=== PATIENT | female | born 1940 | race Caucasian/White ===

== ENCOUNTER → 2017-07-15 21:56 | Emergency (ER) | payer MEDICARE ==
[~2017-07-15 21:56] MED LIST: HYDROcodone/ACETAMIN 5-325 MG* 1 TAB PO ONE
[2017-07-16 01:44] VITALS: BP 148/72
--- NOTE | 2017-07-16 07:45 | RAD ---
HISTORY: Fall, left hip pain COMPARISONS: August 27, 2013 VIEWS: 3, Frontal view of the pelvis with frontal and frog-leg views of the left hip FINDINGS: BONE DENSITY: Normal. BONES: The patient is status post left hip arthroplasty. There is no hardware failure or osteolysis. JOINTS: The patient is status post left hip arthroplasty. 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 ALIGNMENT: There is no dislocation. SOFT TISSUES: Unremarkable. OTHER FINDINGS: Degenerative changes are noted of the spine IMPRESSION: STATUS POST LEFT HIP ARTHROPLASTY. NO ACUTE OSSEOUS INJURY. IF SYMPTOMS PERSIST, RECOMMEND REPEAT IMAGING.
--- NOTE | 2017-07-16 07:46 | RAD ---
INDICATION: Fall. Right shoulder injury COMPARISON: None TECHNIQUE: Routine frontal, Y and axial views were obtained. FINDINGS: There is a mildly displaced fracture of the head and surgical neck of the humerus. No other fractures are evident. There is osteopenia with underlying AC joint osteoarthritis. No additional findings. IMPRESSION: PROXIMAL HUMERAL FRACTURE DESCRIBED.
--- NOTE | 2017-07-16 07:48 | RAD ---
INDICATION: Right elbow pain COMPARISON: None TECHNIQUE: AP, lateral, and oblique views were obtained. FINDINGS: There is no acute fracture. There are minor irregularities about the lateral upper condyle perhaps related to epicondylitis. There is mild traction spurring from the olecranon. The elbow articulates normally. There is no joint effusion IMPRESSION: NO ACUTE ABNORMALITIES ABOUT THE ELBOW.
--- NOTE | 2017-07-16 07:49 | RAD ---
INDICATION: Traumatic fracture proximal right humerus. Clavicular pain. COMPARISON: Right shoulder same date TECHNIQUE: AP views were obtained. FINDINGS: There is no clavicular fracture. There is a known proximal humeral fracture described in a separate report. IMPRESSION: NO ACUTE CLAVICULAR FRACTURE.
--- NOTE | 2017-07-16 07:53 | ED ---
Alex Rothman Rebecca, scribed for Romain Adkins MD on 07/15/17 at 2313 . Upper Extremity Pain - HPI Summary HPI Summary: Pt is a 77 y/o F BIBA who presents to ED c/o R shoulder and L hip pain s/p fall. Reports that she lives in independent living and tonight, she became tangled in her blankets causing her to fall at approximately 2130. Negative LOC with no head trauma. Associated pain is currently severe, ranked 10/10. Denies any other injuries or pain. Denies CP, SOB and syncope. She is R-hand dominant. - History of Current Complaint Chief Complaint: EDExtremityUpper Stated Complaint: RT SHOULDER PAIN Time Seen by Provider: 07/15/17 23:05 Hx Obtained From: Patient Mechanism Of Injury: Fall From Height Of: - Bed Onset/Duration: Started Hours Ago, Still Present Severity Currently: Severe Pain Location: Shoulder - Right Associated Signs & Symptoms: Positive: Other - L hip pain. Negative: Chest Pain , SOB Related History: Dominant Hand Right - Allergies/Home Medications Allergies/Adverse Reactions: Allergies Allergy/AdvReac Type Severity Reaction Status Date / Time No Known Allergies Allergy Verified 08/27/13 09:07 PMH/Surg Hx/FS Hx/Imm Hx Endocrine/Hematology History: Reports: Hx Diabetes Cardiovascular History: Reports: Hx Atrial Fibrillation, Hx Hypertension - Surgical History Surgery Procedure, Year, and Place: left hip replacement; Infectious Disease History: Unable to Obtain/Confirm Infectious Disease History: Denies: Traveled Outside the [place] in Last 30 Days - Family History Known Family History: Positive: Diabetes - Social History Alcohol Use: None Substance Use Type: Reports: None Smoking Status (MU): Unknown if Ever Smoked Review of Systems Negative: Chest Pain Negative: Shortness Of Breath Positive: Arthralgia - R shoulder pain, L hip pain Neurological: Other - NEGATIVE: LOC Negative: Syncope All Other Systems Reviewed And Are Negative: Yes Physical Exam - Summary Physical Exam Summary: The patient is well-nourished in no acute distress and in no acute pain. The skin is warm and dry and skin color reflects adequate perfusion. HEENT: The head is normocephalic and atraumatic. The pupils are equal and reactive. The conjunctivae are clear and without drainage. Nares are patent and without drainage. Mouth reveals moist mucous membranes and poor dentition and the throat is without erythema and exudate. The external ears are intact. The ear canals are patent and without drainage. The tympanic membranes are intact. Neck is supple with full range of motion and non-tender. Respiratory: Chest is non-tender. Lungs are clear to auscultation and breath sounds are symmetrical and equal. Cardiovascular: Hear is regular rate and rhythm. There is no murmur or rub auscultated. There is no peripheral edema and pulses are symmetrical and equal. Abdomen: The abdomen is soft and non-tender. There are normal bowel sounds heard in all four quadrants and there is no organomegaly palpated. Musculoskeletal: There is no back pain noted and no reproducible back pain. Positive SUNNY's sign of the LLE. Tenderness and swelling in the R shoulder with decreased ROM. Tender at the distal R clavicle and R elbow. She is neurovascularly intact, distally. There is good capillary refill. She is experiencing no numbness. There is no peripheral edema or calf tenderness elicited. Neurological: Patient is alert and oriented to person, place and time. The patient has symmetrical motor strength in all four extremities. Psychiatric: The patient has an appropriate affect and does not exhibit any anxiety or depression. Triage Information Reviewed: Yes Vital Signs On Initial Exam: Initial Vitals Temp Pulse Resp BP Pulse Ox 97.7 F 63 16 135/63 93 07/15/17 22:09 07/15/17 22:09 07/15/17 22:09 07/15/17 22:09 07/15/17 22:09 Vital Signs Reviewed: Yes - Onel Coma Scale Coma Scale Total: 15 Diagnostics - Vital Signs Vital Signs Temp Pulse Resp BP Pulse Ox 07/15/17 22:09 97.7 F 63 16 135/63 93 - Laboratory Lab Statement: Any lab studies that have been ordered have been reviewed, and results considered in the medical decision making process. - Radiology Elbow XR Xray Interpretation: No Acute Changes Radiology Interpretation Completed By: ED Physician Clavicle XR Xray Interpretation: Positive (See Comments) Radiology Interpretation Completed By: ED Physician Shoulder XR Xray Interpretation: Positive (See Comments) - Humeral neck fracture with impaction. The fracture is comminuted Radiology Interpretation Completed By: ED Physician Hip XR Xray Interpretation: No Acute Changes - S/p hip replacement with no obvious fx or dislocation. Radiology Interpretation Completed By: ED Physician Re-Evaluation - Re-Evaluation First Eval Re-Evaluation Time: 01:08 Change: Improved Comment: Pt is currently pain free. Discussed XR results and plan to splint, D/ C to home and follow up with Dr. Satrk. She understands and agrees. Also discussed having the pt in assisted living instead of independent living which the family agrees with. Course/Dx - Course Assessment/Plan: Pt is a 77 y/o F BIBA who presents to ED c/o R shoulder and L hip pain s/p fall. Reports that she lives in independent living and tonight, she became tangled in her blankets causing her to fall at approximately 2130. Negative LOC with no head trauma. Associated pain is currently severe, ranked 10 /10. Denies any other injuries or pain. Denies CP, SOB and syncope. She is R- hand dominant. Elbow and hip XR are negative for acute fracture. Clavicle and shoulder XR reveal a fracture humerus, with the shoulder XR showing a humeral neck fracture withimpaction that is comminuted. In the ED course, pt was given [place] 5/325 which improved sx. She will be D/C to home with Dx of fractured R humerus and will be placed in a shoulder immobilizer with instructions to ice, Rx for [place] 5/325 and directions to f/u with Dr. Stark in the morning. She and family understand and agree. Elevated BP noted and advised to f/u with PCP. - Diagnoses Differential Diagnosis/HQI/PQRI: Positive: Other - dislocation, left hip contusion, Provider Diagnoses: Closed right humeral fracture Discharge - Discharge Plan Condition: Stable Disposition: HOME Prescriptions: HYDROcodone/ACETAMIN 5-325 MG* [[place] 5-325 TAB*] 1 tab PO Q6H PRN #20 tab MDD 4 PRN Reason: pain Patient Education Materials: Arm Fracture in Adults (ED), RICE Therapy (ED) Referrals: Aniceto Cole MD [Primary Care Provider] - Sharri Stark MD [Medical Doctor] - (Call Dr. Stark's office this morning to follow up. ) Additional Instructions: Apply ice to the fractured arm. The documentation as recorded by the Alex paez Rebecca accurately reflects the service I personally performed and the decisions made by me, Romain Adkins MD.
== END | disposition home or self-care (01) ==
LOC: ED 21:56
DX: S42.201A Unspecified fracture of upper end of right humerus, initial encounter for closed fracture (principal); M25.511 Pain in right shoulder; M25.552 Pain in left hip; W19.XXXA Unspecified fall, initial encounter; Y93.9 Activity, unspecified; Y92.9 Unspecified place or not applicable
CPT/HCPCS: 99283

== ENCOUNTER 2017-07-16 15:58 | Inpatient (IN) | payer MEDICARE ==
[2017-07-16 17:31] LABS: Hematocrit 37 % (35-47); Mean Corpuscular HGB Conc 33 g/dl (31-36); Mean Corpuscular Hemoglobin 29 pg (27-31); Mean Corpuscular Volume 89 fL (80-97); Mean Platelet Volume 9 um3 (7.4-10.4); Red Blood Count 4.16 10^6/ul (4.0-5.4); Red Cell Distribution Width 15 % (10.5-15); White Blood Count 9.1 10^3/ul (3.5-10.8)
[2017-07-16 17:46] LABS: Albumin 3.9 g/dL (3.2-5.2); BUN/Creatinine Ratio 19.8 (8-20); Calcium 8.8 mg/dL (8.6-10.3); EGFR African American 64.3 (>60); Globulin 3.1 g/dL (2-4); Total Bilirubin 0.7 mg/dL (0.2-1.0)
[2017-07-16 18:01] LABS: Urine Nitrite Negative (Negative)
[2017-07-16 18:02] LABS: Urine Bilirubin Negative (Negative); Urine Glucose 1+(50 mg/dL) (Negative)
[2017-07-16 18:54] LABS: Urine Bacteria Absent (Absent)
[2017-07-16] MEDS ORDERED: Ondansetron INJ* 2 MG/ML VIAL IV PRN (19:25)
[2017-07-16] MEDS ORDERED: Dextrose 50% Syringe 50 ML* 25 GM/50 ML SYRINGE IV PUSH PRN (19:25)
[2017-07-16 21:09] LABS: EGFR African American 66.5 (>60); EGFR Non-African American 51.7 (>60)
[2017-07-16 21:44] LABS: Hematocrit 34 % (35-47); Hemoglobin 11.4 g/dl (12.0-16.0); Mean Corpuscular HGB Conc 33 g/dl (31-36); Mean Corpuscular Hemoglobin 30 pg (27-31); Mean Corpuscular Volume 89 fL (80-97); Mean Platelet Volume 9 um3 (7.4-10.4); Red Blood Count 3.88 10^6/ul (4.0-5.4); Red Cell Distribution Width 15 % (10.5-15); White Blood Count 8.5 10^3/ul (3.5-10.8)
[2017-07-16] MEDS: QUEtiapine TAB* 25 MG PO SCH (23:11)
[2017-07-16] MEDS: Metoprolol Tartrate TAB* 25 MG PO SCH (23:11)
[2017-07-16] MEDS: Heparin VIAL(*) 5000 UNITS/ML VIAL (FIVE THOUSAND) SUBCUT SCH (23:11)
--- NOTE | 2017-07-16 23:31 | HP ---
CC: Dr. Aniceto Cole * HISTORY AND PHYSICAL: DATE OF ADMISSION: 07/16/17 PRIMARY CARE PROVIDER: Dr. Aniceto Cole. ATTENDING PHYSICIAN WHILE IN THE HOSPITAL: Alexsandra Valencia MD * (report dictated by Carlos A Miller NP) CHIEF COMPLAINT: 1. Fall. 2. Right shoulder pain. HISTORY OF PRESENTING ILLNESS: Mrs. Bentley is a 77-year-old female patient who carries a history of dementia, AFib, hypertension, and diabetes, who last night apparently sustained a fall. She had gotten up to look out the window according to the son and she got tangled up in her blanket and she had fallen. She has a significant history of dementia where she cannot really remember this as well as the son can. She has delusions and hallucinations and always is hearing things and thinking that the TV is on and she has been living at assisted living. She fell last night unfortunately and was found to have a proximal humerus fracture. She was sent back home, but the family quickly realized that she was unsafe at home with a huge risk of fall again. She was having pain. She could not feed herself. She could not care for herself. She could not even wipe herself. So the son was concerned because of the pain that she was not going to be able to care for herself and she was brought back into the ER today to be evaluated. On evaluating the patient, she denies any chest pain. There is no shortness of breath. She denies having any abdominal pain. She denies having any nausea or vomiting. No recent cough. No fevers or chills , but because of the pain and the fact of her unsafety at home, we were asked to evaluate for admission. PAST MEDICAL HISTORY: Significant for: 1. Hypertension. 2. Diabetes. 3. Dementia. 4. Atrial fibrillation. PAST SURGICAL HISTORY: She has had a left hip hemiarthroplasty from a hip fracture. HOME MEDICATIONS: She does not know what she is taking and the son does not what she is taking. He is going to try to get us an accurate list. All he knows is she is on aspirin, simvastatin, and he does not know the other meds. He thinks there is about 7 in total. So we are going to try to get that list. He says he will call back later tonight. ALLERGIES TO MEDICATIONS: No known drug allergies. FAMILY HISTORY: She is unable to tell me the family history at this point as she does not recall. SOCIAL HISTORY: She does not smoke. She does not drink. Surrogate decision maker is her son. REVIEW OF SYSTEMS: There is no documented fever. She denied having any significant weight change. There was no double vision. There is no ear discharge. Not having any rhinorrhea. No sore throat. No thyroid enlargement. Denied having any chest pain. No orthopnea. No nocturnal dyspnea. There was no abdominal pain. There was no nausea, no vomiting. No dysuria, no frequency. There was no loss of consciousness. No pruritus and no skin ulcerations. Review of 14 systems completed, all others negative. PHYSICAL EXAMINATION GENERAL: At this time, Mrs. Bentley is a 77-year-old female patient. She does not appear to be in any acute distress. She is sitting in the hospital bed. She is awake. She is alert. VITAL SIGNS: Blood pressure 143/67, pulse 74, respirations 18, O2 sat 94%, temperature 98.0. HEENT: Head atraumatic, normocephalic. Eyes: EOMs are intact. Sclerae anicteric. NECK: Supple. Throat: Oral mucosa appears to be moist. No oropharyngeal erythema. HEART: Heart sounds S1 and S2. Regular rate and rhythm. No murmurs, rubs, or gallops. LUNGS: Clear to auscultation. No wheezes, rales, or rhonchi. ABDOMEN: Soft, flat, and nontender. Bowel sounds present. EXTREMITIES: Pulses are 2+ throughout. Distal CSM checks were intact to the right upper extremity. This is in a sling. NEUROLOGIC: She is actually awake and alert. She knows she is in the hospital , knows her name, and she knows it is June. Her speech is clear. Tongue midline. No gross focal deficits. SKIN: Grossly intact. LABORATORY DATA/DIAGNOSTIC STUDIES: WBC of 9.1, RBC of 4.16, hemoglobin 12.0, hematocrit of 37, platelet count of 186. Sodium was 141, potassium 4, chloride of 106, bicarb was 29, BUN was 21, creatinine 1.06. Glucose of 194, calcium 8.8. Total bili 0.78, AST 13, ALT 12, alk phos 72. Albumin 3.9. Urine showed a high specific gravity of 1.035, 1+ protein, 1+ glucose. Imaging from last night revealed she had a hip and pelvis x-ray, which shows status post left hip arthroplasty, no acute osseous injury. Shoulder x-ray showed proximal humeral fracture as described. Clavicle x-ray showed no acute clavicular fracture. Elbow x-ray showed no acute abnormalities of the elbow. EKG from today showed normal sinus rhythm, rate of 56, no ST elevations or T- wave inversions were noted. Old medical records were reviewed. ASSESSMENT AND PLAN: Mrs. Bentley is a 77-year-old female patient coming in to the ER today. She came in last night with complaints of fall. Unfortunately, she was unable to care for herself at home, so she came back to the ER today for further evaluation. She will be admitted under inpatient status for: 1. Right humerus fracture. At this point, she is clearly not safe at home. She is set up to fall again. She has no reliable caregiver except for her son, but he is unfortunately unable to care for her. The patient will be here longer than 2 midnights, she needs a safer place. She is having pain any time she moves the arm, so at this point, we will go ahead and put her on [place]. She will be staying here until we try to get her into a [facility] facility for rehab. I did order a PT and I will order OT needs as well and continue to follow. She is to follow up with Orthopedics. We could certainly consult with them officially to have some ____ here. 2. Diabetes. Continue insulin sliding scale. 3. Hypertension. Blood pressure is stable. We will monitor and try to get the list from her son. 4. Dementia. Continue supportive care. 5. AFib. She does not appear to be in AFib currently. We will again get the list from her son. 6. DVT prophylaxis. She will be placed on heparin subcu. 7. Code status. She wishes to be a full code. 8. Fluids, electrolytes, nutrition. She can have a consistent carb diet. TIME SPENT: Time spent on this admission was approximately 60 minutes, greater than half the time spent face to face with the patient, obtaining my history and physical, the other half time spent going over the plan of care with the patient, implementing plan of care. I discussed the plan of care with my attending, Dr. Valencia, she is in agreement. CARLOS A MILLER, CDL INSTRUCTOR [id number]/[facility] #: [id number] [facility] HOSPITALAisha
[2017-07-17] MEDS: Heparin VIAL(*) 5000 UNITS/ML VIAL (FIVE THOUSAND) SUBCUT SCH ×3 (06:02→21:41)
[2017-07-17 06:15] LABS: Hematocrit 34 % (35-47); Hemoglobin 11.4 g/dl (12.0-16.0); Mean Corpuscular HGB Conc 33 g/dl (31-36); Mean Corpuscular Hemoglobin 30 pg (27-31); Mean Corpuscular Volume 89 fL (80-97); Mean Platelet Volume 9 um3 (7.4-10.4); Red Blood Count 3.84 10^6/ul (4.0-5.4); Red Cell Distribution Width 14 % (10.5-15); White Blood Count 8.3 10^3/ul (3.5-10.8)
[2017-07-17 06:30] LABS: BUN/Creatinine Ratio 20.4 (8-20); Calcium 8.4 mg/dL (8.6-10.3); EGFR African American 70.4 (>60); EGFR Non-African American 54.7 (>60); Potassium 3.9 mmol/L (3.5-5.0)
[2017-07-17] MEDS: HYDROcodone/ACETAMIN 5-325 MG* 1 TAB PO PRN ×3 (06:30→19:23)
[2017-07-17] MEDS: Insulin LISPRO* 1 UNITS UNIT SUBCUT SCH ×3 (07:57→19:18)
[2017-07-17] MEDS: Atorvastatin* 10 MG TAB PO SCH (08:02)
[2017-07-17] MEDS: Amiodarone TAB* 200 MG PO SCH (08:02)
[2017-07-17] MEDS: Metoprolol Tartrate TAB* 25 MG PO SCH ×2 (08:03→21:41)
--- NOTE | 2017-07-17 08:38 | PN ---
Subjective - Subjective Reason for Note: Progress Note History: She tells me she was folding a blanket and fell. She called for help and nobody came. She knows she is in the hospital, but states it is June 1978. I reviewed her presentation provided by Carlos A Tellez NP. This morning she has some pain in her right shoulder, but not at rest. Otherwise, she is not in any distress Active Problems: Active Problems Fall (Acute) Fracture of surgical neck of right humerus (Acute) S42.211A Dementia (Chronic) F03.90 History of atrial fibrillation (Chronic) Z86.79 History of coronary artery stent placement (Chronic) Z95.5 History of fracture of left hip (Chronic) Z87.81 History of hallucinations (Chronic) Z86.59 History of non-ST elevation myocardial infarction (NSTEMI) (Chronic) I25.2 Hyperlipemia (Chronic) E78.5 Hypertension (Chronic) I10 Type 2 diabetes mellitus (Chronic) Urinary incontinence (Chronic) R32 Current Medications: Current Medications Acetaminophen (Tylenol Tab*) 650 mg PO Q4H PRN PRN Reason: FEVER/PAIN Hydrocodone Bitart/Acetaminophen ([place] 5-325 Tab*) 1 tab PO Q6H PRN PRN Reason: PAIN Last Admin: 07/17/17 06:30 Dose: 1 tab Amiodarone HCl (Cordarone Tab*) 200 mg PO DAILY [facility] Last Admin: 07/17/17 08:02 Dose: 200 mg Atorvastatin Calcium (Lipitor*) 10 mg PO DAILY [facility] Last Admin: 07/17/17 08:02 Dose: 10 mg Dextrose (D50w Syringe 50 Ml*) 12.5 gm IV PUSH .FOR FS < 60 - SS PRN PRN Reason: FS < 60 Heparin Sodium (Porcine) (Heparin Vial(*)) 5,000 units SUBCUT Q8HR [facility] Last Admin: 07/17/17 06:02 Dose: 5,000 units Insulin Human Lispro (Humalog*) 0 units SUBCUT AC [facility] PRN Reason: Protocol Last Admin: 07/17/17 07:57 Dose: 1 unit Metoprolol Tartrate (Lopressor Tab*) 25 mg PO BID [facility] Last Admin: 07/17/17 08:03 Dose: 25 mg Ondansetron HCl (Zofran Inj*) 4 mg IV Q6H PRN PRN Reason: NAUSEA Quetiapine Fumarate (Seroquel Tab*) 25 mg PO BEDTIME [facility] Last Admin: 07/16/17 23:11 Dose: 25 mg Home Medications: Home Medications Medication Instructions Recorded Confirmed Type Amiodarone TAB* [Cordarone TAB*] 200 mg PO DAILY 07/16/17 07/16/17 History Atorvastatin* [Lipitor*] 10 mg PO DAILY 07/16/17 07/16/17 History HYDROcodone/ACETAMIN 5-325 MG* 1 tab PO Q6H PRN #20 tab MDD 4 07/16/17 Rx [[place] 5-325 TAB*] Metoprolol Tartrate TAB* 25 mg PO BID 07/16/17 07/16/17 History [Lopressor TAB*] Quetiapine Fumarate [Seroquel] 25 mg PO 07/16/17 History Allergies: Allergies Allergy/AdvReac Type Severity Reaction Status Date / Time No Known Allergies Allergy Verified 08/27/13 09:07 Objective - Vital Signs Vital Signs: Vital Signs 07/16/17 07/16/17 07/16/17 18:11 18:23 18:43 Temperature 99.5 F Pulse Rate 63 79 Respiratory 20 Rate Blood Pressure 113/56 121/92 (mmHg) O2 Sat by Pulse 96 97 Oximetry 07/16/17 07/16/17 07/16/17 18:58 20:00 23:42 Temperature 98 F 98.0 F Pulse Rate 74 66 Respiratory 19 19 16 Rate Blood Pressure 142/67 121/51 (mmHg) O2 Sat by Pulse 94 96 Oximetry 07/17/17 07/17/17 07/17/17 00:00 04:03 06:30 Temperature 99.1 F Pulse Rate 59 Respiratory 16 20 Rate Blood Pressure 99/73 (mmHg) O2 Sat by Pulse 93 93 Oximetry - Intake and Output Intake and Output: Intake & Output 07/14/17 07/15/17 07/16/17 07/17/17 11:59 11:59 11:59 11:59 Intake Total 100 Balance 100 Weight 160 lb 6.4 oz Intake: Oral 100 Other: Estimated Void Medium # Bowel Movements 0 # Voids 1 ADLs: Meal Record Start: 07/16/17 18: 58 Freq: DAILY@0900,1400,1800 Status: Active Created 07/16/17 18:58 System (Rec: 07/16/17 18:58 System [id number]) Intake and Output Start: 07/16/17 18: 58 Freq: DAILY@0600,1400,2200 Status: Active Created 07/16/17 18:58 System (Rec: 07/16/17 18:58 System [id number]) Document 07/16/17 22:00 [id number] (Rec: 07/16/17 22:33 [id number] MED-C11) Document 07/17/17 06:00 [id number] (Rec: 07/17/17 06:31 [id number] [id number]) - Physical Exam General: No Cyanosis, No Anemia, No Jaundice, No Clubbing Lungs and Chest: Yes: Chest Expansion Full, Chest Expansion Symetrica, Percussion Note Resonant, Vessicular Breath Sounds. No: Crackles, Wheezes Heart Rate and Rhythm: Regular JVP: Not Elevated Additional Cardiovascular: Yes: Normal Heart Sounds. No: Heart Murmur, Pedal Edema Abdominal Exam: Yes: Soft, Bowel Sounds Present. No: Rigidity, Abdominal Tenderness - Extremities Cranial Nerves II-XII Intact: Yes Limbs: Normal Power - Right arm not examined due to pain, Normal Tone - Neuro Orientation: Place Psychiatric: Normal Speech: Normal Results - Results Lab Results: Laboratory Results - last 24 hr 07/16/17 07/16/17 07/16/17 20:14 20:14 21:38 WBC 8.5 RBC 3.88 L Hgb 11.4 L Hct 34 L MCV 89 MCH 30 MCHC 33 RDW 15 Plt Count 168 MPV 9 Neut % (Auto) 70.0 Lymph % (Auto) 15.1 L Gordon % (Auto) 13.4 H Eos % (Auto) 0.5 Baso % (Auto) 1.0 Absolute Neuts (auto) 5.9 Absolute Lymphs (auto) 1.3 Absolute Monos (auto) 1.1 H Absolute Eos (auto) 0 Absolute Basos (auto) 0.1 Absolute Nucleated RBC 0 Nucleated RBC % 0 INR (Anticoag Therapy) 0.94 APTT 26.4 Sodium Potassium Chloride Carbon Dioxide Anion Gap BUN 21 Creatinine 1.03 H Est GFR ( Amer) 66.5 Est GFR (Non-Af Amer) 51.7 BUN/Creatinine Ratio Glucose POC Glucose (mg/dL) Calcium 07/17/17 07/17/17 07/17/17 06:02 06:02 06:02 WBC 8.3 RBC 3.84 L Hgb 11.4 L Hct 34 L MCV 89 MCH 30 MCHC 33 RDW 14 Plt Count 157 MPV 9 Neut % (Auto) 66.2 Lymph % (Auto) 18.3 L Gordon % (Auto) 12.7 H Eos % (Auto) 1.4 Baso % (Auto) 1.4 Absolute Neuts (auto) 5.5 Absolute Lymphs (auto) 1.5 Absolute Monos (auto) 1.0 H Absolute Eos (auto) 0.1 Absolute Basos (auto) 0.1 Absolute Nucleated RBC 0 Nucleated RBC % 0 INR (Anticoag Therapy) 0.97 APTT Sodium 143 Potassium 3.9 Chloride 110 Carbon Dioxide 27 Anion Gap 6 BUN 20 Creatinine 0.98 H Est GFR ( Amer) 70.4 Est GFR (Non-Af Amer) 54.7 BUN/Creatinine Ratio 20.4 H Glucose 145 H POC Glucose (mg/dL) Calcium 8.4 L 07/17/17 07:20 WBC RBC Hgb Hct MCV MCH MCHC RDW Plt Count MPV Neut % (Auto) Lymph % (Auto) Gordon % (Auto) Eos % (Auto) Baso % (Auto) Absolute Neuts (auto) Absolute Lymphs (auto) Absolute Monos (auto) Absolute Eos (auto) Absolute Basos (auto) Absolute Nucleated RBC Nucleated RBC % INR (Anticoag Therapy) APTT Sodium Potassium Chloride Carbon Dioxide Anion Gap BUN Creatinine Est GFR ( Amer) Est GFR (Non-Af Amer) BUN/Creatinine Ratio Glucose POC Glucose (mg/dL) 150 H Calcium Radiology Results: Patient Name: TERRELL BENTLEY I Medical Record#: [id number] Ordering Physician: Romain Adkins DO Acct.#: [id number] : 1940 Age: 77 Sex: F Location: EMERGENCY DEPARTMENT Exam Date: 07/15/172306 ADM Status: REG ER Order Information: HIP LEFT 2 VIEWS AND PELVIS Accession Number: [id number] CPT: 10700 HISTORY: Fall, left hip pain COMPARISONS: August 27, 2013 VIEWS: 3, Frontal view of the pelvis with frontal and frog-leg views of the left hip FINDINGS: BONE DENSITY: Normal. BONES: The patient is status post left hip arthroplasty. There is no hardware failure or osteolysis. JOINTS: The patient is status post left hip arthroplasty. 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 ALIGNMENT: There is no dislocation. SOFT TISSUES: Unremarkable. OTHER FINDINGS: Degenerative changes are noted of the spine IMPRESSION: STATUS POST LEFT HIP ARTHROPLASTY. NO ACUTE OSSEOUS INJURY. IF SYMPTOMS PERSIST , RECOMMEND REPEAT IMAGING. <Electronically signed by Octavio Byers MD in OV> 07/16/17741 Dictated By: Octavio Byers MD Dictated Date/Time: 07/16/17741 Transcribed Date/Time: 07/16/17740 Copy to: CC:Aniceto Cole MD; Romain Adkins DO Imaging - [facility] - [facility] - [facility] [address] [place] [address] ph ([phone]) ph ([phone]) ph [phone]) Patient Name: TERRELL BENTLEY I Medical Record#: [id number] Ordering Physician: Romain Adkins DO Acct.#: [id number] : 1940 Age: 77 Sex: F Location: EMERGENCY DEPARTMENT Exam Date: 07/15/172307 ADM Status: REG ER Order Information: SHOULDER RIGHT 2+ VWS Accession Number: [id number] CPT: 50209 INDICATION: Fall. Right shoulder injury COMPARISON: None TECHNIQUE: Routine frontal, Y and axial views were obtained. FINDINGS: There is a mildly displaced fracture of the head and surgical neck of the humerus. No other fractures are evident. There is osteopenia with underlying AC joint osteoarthritis. No additional findings. IMPRESSION: PROXIMAL HUMERAL FRACTURE DESCRIBED. <Electronically signed by Wiley Westfall MD in OV> 07/16/17 0743 Dictated By: Wiley Westfall MD Dictated Date/Time: 07/16/1743 Transcribed Date/Time: 07/16/17 0741 Copy to: CC:Aniceto Cole MD; Romain Adkins DO Imaging - [facility] Imaging - [facility] Imaging - [facility] [address] [place], [place] [id number] [place] [id number] [place] [address] ph ([phone]) ph ([phone]) ph ([phone]) EKG Report: Rate 66 LA 1541 QTc 443 QRS -51. sinus rhythm, LVH Assessment - Problem List Assessment: Patient Problems Fall (Acute) Fracture of surgical neck of right humerus (Acute) Dementia (Chronic) History of atrial fibrillation (Chronic) History of coronary artery stent placement (Chronic) History of fracture of left hip (Chronic) History of hallucinations (Chronic) History of non-ST elevation myocardial infarction (NSTEMI) (Chronic) Hyperlipemia (Chronic) Hypertension (Chronic) Type 2 diabetes mellitus (Chronic) Urinary incontinence (Chronic) Plan: Fall (Acute)Fracture of surgical neck of right humerus (Acute) She had a mechanical fall without any reported LOC or cardiac symptoms. She has pain in her right shoulder when she moves it. She is unable to cope independently and requires pain control. I will obtain OT/PT consultaiton Dementia (Chronic)/History of hallucinations (Chronic) This is likely a fronto- temporal dementia. At present she is appropriate and partially oriented. This makes rehabilitation more complex. History of atrial fibrillation (Chronic) She is currently in SR with the help of amiodarone History of coronary artery stent placement (Chronic) History of non-ST elevation myocardial infarction (NSTEMI) (Chronic) She has a history of CAD, but has no cardiac symptoms and her EKG is normal sinus rhythm History of fracture of left hip (Chronic) This was in 2007 and from a mechanical fall Hyperlipemia (Chronic) secondary diagonsis Hypertension (Chronic) Her BP is on the low side. Type 2 diabetes mellitus (Chronic) her blood glucose control is acceptable - I will check an A1c Urinary incontinence (Chronic) secondary diagnosis. I will obtain an orthopedic consult to evaluate management of her right humeral fracture. I will adjust her pain control. I will obtain PT/OT evaluation. She requires an acute medical bed during this evaluation and adjustment of her pain medications. Phone call to son Cristian Bentley - she couldn't cope at home. I spoke with her son Cristian Bentley and explained her situation.
[2017-07-17] MEDS: Morphine INJ* 2 MG/ML 1 ML SYRINGE (TWO MG - NEW SYRINGE VERSION) IV PRN (11:17)
[2017-07-17 15:59] LABS: TSH (Thyroid Stimulating Horm) 4.71 mcIU/mL (0.34-5.60)
[2017-07-17 16:03] LABS: Free T3 2.4 pg/mL (2.5-3.9)
--- NOTE | 2017-07-17 16:06 | PN ---
Progress Note - Progress Note Date of Service: 07/17/17 Note: I was told by the social service liaison that her son has chosen not to continue with me as her PCP or attending physician. I called the son and asked him if this is the case. He said it is. I asked him why "I want to go in a different direction". I asked him why this was and he stated "I don't want to go into that". I asked him if his mother agreed and he stated she did. I asked if he trusted me with my recommending the change in team, he said he did. I will therefore transfer her care to the hospitalist team.
[2017-07-17 16:07] LABS: Total T3 0.68 ng/mL (0.87-1.78)
[2017-07-17 16:08] LABS: Free T4 0.71 ng/dL (0.61-1.12)
[2017-07-17] MEDS: QUEtiapine TAB* 25 MG PO SCH (21:41)
--- NOTE | 2017-07-18 00:50 | HP ---
CC: Dr. Cole HISTORY AND PHYSICAL: DATE OF ADMISSION: 07/16/17 DATE OF SERVICE: 07/17/17 CHIEF COMPLAINT: Right shoulder pain. CONSULTING PROVIDER: Dr. Aniceto Cole. HISTORY OF PRESENT ILLNESS: Ms. Marcela Bentley is a 77-year-old right hand dominant female with dementia, AFib, hypertension, diabetes, who sustained a fall potentially on 07/15/17. She is not a good historian, but per the notes, she got up to look out of the window and she tangled up and sustained a mechanical fall. She has significant history of dementia and was unable to tell me this. She is lying comfortably in her bed with a sling on and she did not realize she had broken her shoulder. She denies any numbness or tingling. No fevers or chills. She does report pain if she moves this, but she is limited in her activities. PAST MEDICAL HISTORY: Significant for high blood pressure, diabetes, dementia, atrial fibrillation. PAST SURGICAL HISTORY: History of left hip hemiarthroplasty. MEDICATIONS: 1. Simvastatin. 2. Aspirin. 3. Acetaminophen. 4. Hydrocodone. 5. Amiodarone. 6. Atorvastatin. 7. Heparin. 8. Insulin. 9. Metoprolol. 10. Morphine. 11. Ondansetron. 12. Psyllium. 13. Quetiapine. ALLERGIES: None. FAMILY HISTORY: Unavailable to obtain because of her confusion. SOCIAL HISTORY: She does not smoke or drink. Her surrogate decision maker is her son. REVIEW OF SYSTEMS: She is unable to comply but she appears to have no fevers or chills. No numbness or tingling. No chest pain, no shortness of breath. There is right shoulder pain; otherwise, remainder of systems is negative. PHYSICAL EXAMINATION GENERAL: She is in no acute distress. She is lying in the hospital bed. She is awake. She is alert to herself but she is discussing things that we are not talking about. VITAL SIGNS: Most recent vitals, temperature of 98, pulse rate 65, respiratory rate 20, O2 95%, blood pressure 119/54. HEENT: EOMI. CHEST: Clear to auscultation. HEART: Regular rate and rhythm. ABDOMEN: Soft, nontender. EXTREMITIES: Examination of the right shoulder demonstrates the skin is intact. There is abundant bruising. She has pain but she is able to flex her elbow and wrist and hand. She is sensate to light touch about the first dorsal webspace, index and long finger, and ulnar aspect of small finger. She has 2+ radial pulse. Her hand is very sweaty. DIAGNOSTIC STUDIES/LAB DATA: Today demonstrate white count of 8.3, hematocrit of 34, platelets of 157. INR of 0.97. Sodium 143, potassium 3.9, chloride 110 , carbon dioxide 27, BUN is 20, creatinine 0.98, glucose is 145. X-rays demonstrate a right proximal humerus surgical neck fracture with comminution. ASSESSMENT AND PLAN: She has a right proximal humerus fracture. She is very confused at baseline and this could be amenable to nonoperative treatment but it needs to be followed closely. I worry about putting her through big surgery and whether she will be compliant afterwards if she has persistent pain and inability to do things and she cause herself more harm that is a good reason to consider surgical treatment. For now, I will watch her and I will follow her conservatively. She can follow up in my office next week. [id number]/[facility] #: [id number] LOLA
[2017-07-18] MEDS: Morphine INJ* 2 MG/ML 1 ML SYRINGE (TWO MG - NEW SYRINGE VERSION) IV PRN ×3 (03:33→19:57)
[2017-07-18] MEDS: Heparin VIAL(*) 5000 UNITS/ML VIAL (FIVE THOUSAND) SUBCUT SCH ×3 (06:22→19:59)
[2017-07-18] MEDS: Insulin LISPRO* 1 UNITS UNIT SUBCUT SCH ×3 (08:30→17:56)
[2017-07-18] MEDS: Acetaminophen TAB* 325 MG PO PRN (08:31)
[2017-07-18] MEDS: Amiodarone TAB* 200 MG PO SCH (08:31)
[2017-07-18] MEDS: Metoprolol Tartrate TAB* 25 MG PO SCH ×2 (08:31→19:58)
[2017-07-18] MEDS: Atorvastatin* 10 MG TAB PO SCH (08:31)
[2017-07-18] MEDS: Psyllium PAK PO SCH (08:32)
[2017-07-18] MEDS ORDERED: Polyethylene Glycol 3350* 17 GM PACKET PO PRN (15:11)
[2017-07-18] MEDS ORDERED: Docusate CAP* 100 MG PO PRN (15:11)
[2017-07-18] MEDS: HYDROcodone/ACETAMIN 5-325 MG* 1 TAB PO PRN (16:11)
--- NOTE | 2017-07-18 17:45 | PN ---
Subjective Date of Service: 07/18/17 Interval History: Patient here w/ RT humeral fracture. She is poor historian. Lives alone in apartment in [place]. Cannot take care of herself with LT arm. Her son is involved. Apparently there was some conflict with Dr. Cole, so we are rounding. Denies chest pain, SOB, has good appetite. Most of time, pain treatable w/ percocet. Family History: Unchanged from Admission Social History: Unchanged from Admission Past Medical History: Unchanged from Admission Objective Active Medications: Acetaminophen (Tylenol Tab*) 650 mg PO Q4H PRN PRN Reason: FEVER/PAIN Last Admin: 07/18/17 08:31 Dose: 650 mg Hydrocodone Bitart/Acetaminophen ([place] 5-325 Tab*) 1 tab PO Q6H PRN PRN Reason: PAIN Last Admin: 07/18/17 16:11 Dose: 1 tab Amiodarone HCl (Cordarone Tab*) 200 mg PO DAILY [facility] Last Admin: 07/18/17 08:31 Dose: 200 mg Atorvastatin Calcium (Lipitor*) 10 mg PO DAILY [facility] Last Admin: 07/18/17 08:31 Dose: 10 mg Dextrose (D50w Syringe 50 Ml*) 12.5 gm IV PUSH .FOR FS < 60 - SS PRN PRN Reason: FS < 60 Docusate Sodium (Colace Cap*) 100 mg PO BID PRN PRN Reason: CONSTIPATION Last Admin: 07/18/17 16:11 Dose: 100 mg Heparin Sodium (Porcine) (Heparin Vial(*)) 5,000 units SUBCUT Q8HR [facility] Last Admin: 07/18/17 13:05 Dose: 5,000 units Insulin Human Lispro (Humalog*) 0 units SUBCUT AC [facility] PRN Reason: Protocol Last Admin: 07/18/17 13:06 Dose: 2 unit Metoprolol Tartrate (Lopressor Tab*) 25 mg PO BID [facility] Last Admin: 07/18/17 08:31 Dose: 25 mg Morphine Sulfate (Morphine Inj (Syringe)*) 1 mg IV Q2H PRN PRN Reason: FOR SEVERE PAIN Last Admin: 07/18/17 13:05 Dose: 1 mg Ondansetron HCl (Zofran Inj*) 4 mg IV Q6H PRN PRN Reason: NAUSEA Polyethylene Glycol/Electrolytes (Miralax*) 17 gm PO DAILY PRN PRN Reason: CONSTIPATION Last Admin: 07/18/17 16:11 Dose: 17 gm Psyllium Hydrophilic Mucilloid (Metamucil Malik*) 1 pkt PO DAILY [facility] Last Admin: 07/18/17 08:32 Dose: 1 pkt Quetiapine Fumarate (Seroquel Tab*) 25 mg PO BEDTIME [facility] Last Admin: 07/17/17 21:41 Dose: 25 mg Vital Signs 07/17/17 07/17/17 07/17/17 19:23 20:00 20:36 Temperature 36.9 C Pulse Rate 67 Respiratory 22 18 18 Rate Blood Pressure 107/51 (mmHg) O2 Sat by Pulse 94 Oximetry 07/17/17 07/18/17 07/18/17 21:23 00:00 00:28 Temperature 36.7 C Pulse Rate 61 Respiratory 18 18 Rate Blood Pressure 106/51 (mmHg) O2 Sat by Pulse 93 91 Oximetry 07/18/17 07/18/17 07/18/17 03:16 03:33 04:33 Temperature 36.9 C Pulse Rate 65 Respiratory 18 20 16 Rate Blood Pressure 122/74 (mmHg) O2 Sat by Pulse 93 Oximetry 07/18/17 07/18/17 07/18/17 06:41 08:00 11:59 Temperature 36.7 C 36.8 C Pulse Rate 63 58 Respiratory 22 14 20 Rate Blood Pressure 145/57 102/44 (mmHg) O2 Sat by Pulse 92 91 91 Oximetry 07/18/17 07/18/17 07/18/17 13:05 14:05 16:00 Temperature Pulse Rate Respiratory 16 14 Rate Blood Pressure (mmHg) O2 Sat by Pulse 96 Oximetry 07/18/17 07/18/17 16:11 16:18 Temperature 37.6 C Pulse Rate 85 Respiratory 12 16 Rate Blood Pressure 143/54 (mmHg) O2 Sat by Pulse 96 Oximetry Eyes: No Scleral Icterus Ears/Nose/Mouth/Throat: NL Teeth, Lips, Gums, Clear Oropharnyx, - - some tardive dyskinesia Neck: Trachea Midline Respiratory: Clear to Auscultation, Clear to Percussion Cardiovascular: NL Sounds; No Murmurs; No JVD, RRR Abdominal: NL Sounds; No Tenderness; No Distention, No Hepatosplenomegaly Lymphatic: No Cervical Adenopathy Extremities: No Edema Neurological: Alert and Oriented x 3 Lines/Tubes/Other Access: Clean, Dry and Intact Peripheral IV Nutrition: Taking PO's Result Diagrams: 07/17/17 06:02 07/17/17 06:02 Assess/Plan/Problems-Billing Assessment: 77 yo with RT mechanical fall, RT humeral fracture, unable to safely be discharged home alone. - Patient Problems (1) Fracture of surgical neck of right humerus Current Visit: Yes Status: Acute Priority: High Code(s): S42.211A - UNSP DISP FX OF SURGICAL NECK OF RIGHT HUMERUS, INIT SNOMED Code(s): 644345389 Comment: - Appears to have non-operative fracture - Continue sling, pain control - PT consult (2) Dementia Current Visit: Yes Status: Chronic Priority: Medium Code(s): F03.90 - UNSPECIFIED DEMENTIA WITHOUT BEHAVIORAL DISTURBANCE SNOMED Code(s): 26935490 Comment: - Present mental status more consistent w/ mental illness, not dementia. - May have both diagoses. Status and Disposition: Needs continued hospital stay until assisted living situation can be worked out.
[2017-07-18] MEDS: QUEtiapine TAB* 25 MG PO SCH (19:58)
[2017-07-19] MEDS: Acetaminophen TAB* 325 MG PO PRN
[2017-07-19 05:55] LABS: Hematocrit 33 % (35-47); Hemoglobin 10.9 g/dl (12.0-16.0); Mean Corpuscular HGB Conc 33 g/dl (31-36); Mean Corpuscular Hemoglobin 29 pg (27-31); Mean Corpuscular Volume 89 fL (80-97); Mean Platelet Volume 9 um3 (7.4-10.4); Red Blood Count 3.72 10^6/ul (4.0-5.4); Red Cell Distribution Width 15 % (10.5-15); White Blood Count 7.1 10^3/ul (3.5-10.8)
[2017-07-19] MEDS: Heparin VIAL(*) 5000 UNITS/ML VIAL (FIVE THOUSAND) SUBCUT SCH ×3 (05:56→22:01)
[2017-07-19] MEDS: Atorvastatin* 10 MG TAB PO SCH (08:14)
[2017-07-19] MEDS: Morphine INJ* 2 MG/ML 1 ML SYRINGE (TWO MG - NEW SYRINGE VERSION) IV PRN ×3 (08:15→20:31)
[2017-07-19] MEDS: Amiodarone TAB* 200 MG PO SCH (08:15)
[2017-07-19] MEDS: Metoprolol Tartrate TAB* 25 MG PO SCH ×2 (08:15→20:12)
[2017-07-19] MEDS: Insulin LISPRO* 1 UNITS UNIT SUBCUT SCH ×3 (08:27→17:19)
[2017-07-19] MEDS: Psyllium PAK PO SCH (08:27)
--- NOTE | 2017-07-19 12:09 | PN ---
Subjective Date of Service: 07/19/17 Interval History: Patient is poor historian. She states RT shoulder is painful. She is willing to get up with help, use walker. Eating well. Family History: Unchanged from Admission Social History: Unchanged from Admission Past Medical History: Unchanged from Admission Objective Active Medications: Acetaminophen (Tylenol Tab*) 650 mg PO Q4H PRN PRN Reason: FEVER/PAIN Last Admin: 07/19/17 00:00 Dose: 650 mg Hydrocodone Bitart/Acetaminophen ([place] 5-325 Tab*) 1 tab PO Q6H PRN PRN Reason: PAIN Last Admin: 07/18/17 16:11 Dose: 1 tab Amiodarone HCl (Cordarone Tab*) 200 mg PO DAILY [facility] Last Admin: 07/19/17 08:15 Dose: 200 mg Atorvastatin Calcium (Lipitor*) 10 mg PO DAILY [facility] Last Admin: 07/19/17 08:14 Dose: 10 mg Dextrose (D50w Syringe 50 Ml*) 12.5 gm IV PUSH .FOR FS < 60 - SS PRN PRN Reason: FS < 60 Docusate Sodium (Colace Cap*) 100 mg PO BID PRN PRN Reason: CONSTIPATION Last Admin: 07/18/17 16:11 Dose: 100 mg Heparin Sodium (Porcine) (Heparin Vial(*)) 5,000 units SUBCUT Q8HR [facility] Last Admin: 07/19/17 05:56 Dose: 5,000 units Insulin Human Lispro (Humalog*) 0 units SUBCUT AC [facility] PRN Reason: Protocol Last Admin: 07/19/17 08:27 Dose: 2 unit Metoprolol Tartrate (Lopressor Tab*) 25 mg PO BID [facility] Last Admin: 07/19/17 08:15 Dose: 25 mg Morphine Sulfate (Morphine Inj (Syringe)*) 1 mg IV Q2H PRN PRN Reason: FOR SEVERE PAIN Last Admin: 07/19/17 08:15 Dose: 1 mg Ondansetron HCl (Zofran Inj*) 4 mg IV Q6H PRN PRN Reason: NAUSEA Polyethylene Glycol/Electrolytes (Miralax*) 17 gm PO DAILY PRN PRN Reason: CONSTIPATION Last Admin: 07/18/17 16:11 Dose: 17 gm Psyllium Hydrophilic Mucilloid (Metamucil Malik*) 1 pkt PO DAILY [facility] Last Admin: 07/19/17 08:27 Dose: 1 pkt Quetiapine Fumarate (Seroquel Tab*) 25 mg PO BEDTIME [facility] Last Admin: 07/18/17 19:58 Dose: 25 mg Vital Signs 07/18/17 07/19/17 07/19/17 23:25 04:03 08:15 Temperature 37.9 C 37.0 C Pulse Rate 71 59 Respiratory 16 20 12 Rate Blood Pressure 105/51 126/58 (mmHg) O2 Sat by Pulse 95 96 Oximetry 07/19/17 07/19/17 08:16 08:56 Temperature 37.3 C Pulse Rate 54 Respiratory 19 Rate Blood Pressure 117/49 (mmHg) O2 Sat by Pulse 94 95 Oximetry Oxygen Devices in Use Now: None Appearance: no distress Eyes: No Scleral Icterus Neck: NL Appearance and Movements; NL JVP Respiratory: Symmetrical Chest Expansion and Respiratory Effort, Clear to Auscultation Cardiovascular: NL Sounds; No Murmurs; No JVD, RRR Abdominal: NL Sounds; No Tenderness; No Distention Lymphatic: No Cervical Adenopathy Extremities: - - ecchymosis and reduced ROM and tenderness RT shoulder Lines/Tubes/Other Access: Clean, Dry and Intact Peripheral IV Result Diagrams: 07/19/17 05:09 07/17/17 06:02 Assess/Plan/Problems-Billing Assessment: 77 yo with RT mechanical fall, RT humeral fracture, unable to safely be discharged home alone. - Patient Problems (1) Fracture of surgical neck of right humerus Current Visit: Yes Status: Acute Priority: High Code(s): S42.211A - UNSP DISP FX OF SURGICAL NECK OF RIGHT HUMERUS, INIT SNOMED Code(s): 896000506 Comment: - Reviewed ortho notes, has non-operative plan for fracture - Continue sling, pain control - PT consult appreciated (2) Dementia Current Visit: Yes Status: Chronic Priority: Medium Code(s): F03.90 - UNSPECIFIED DEMENTIA WITHOUT BEHAVIORAL DISTURBANCE SNOMED Code(s): 06924233 Comment: - Present mental status more consistent w/ mental illness, not dementia. - Appears to have both diagoses. (3) Paroxysmal a-fib Current Visit: Yes Status: Chronic Priority: Low Code(s): I48.0 - PAROXYSMAL ATRIAL FIBRILLATION SNOMED Code(s): 876867971 Comment: continue metoprolol and amiodarone (4) DVT prophylaxis Current Visit: Yes Status: Chronic Priority: Low Code(s): BXZ0671 - SNOMED Code(s): 762991952 Comment: SC heparin Status and Disposition: Needs continued hospital stay until assisted living situation can be worked out.
[2017-07-19] MEDS: HYDROcodone/ACETAMIN 5-325 MG* 1 TAB PO PRN (17:19)
[2017-07-19] MEDS: QUEtiapine TAB* 25 MG PO SCH (20:12)
[2017-07-20] MEDS: Heparin VIAL(*) 5000 UNITS/ML VIAL (FIVE THOUSAND) SUBCUT SCH ×2 (06:26→12:38)
[2017-07-20] MEDS: Psyllium PAK PO SCH (08:19)
[2017-07-20] MEDS: Insulin LISPRO* 1 UNITS UNIT SUBCUT SCH ×2 (08:19→12:08)
[2017-07-20] MEDS: Atorvastatin* 10 MG TAB PO SCH (08:20)
[2017-07-20] MEDS: Metoprolol Tartrate TAB* 25 MG PO SCH (08:20)
[2017-07-20] MEDS: HYDROcodone/ACETAMIN 5-325 MG* 1 TAB PO PRN (08:20)
[2017-07-20] MEDS: Amiodarone TAB* 200 MG PO SCH (08:20)
[2017-07-20 12:02] VITALS: BP 117/52
--- NOTE | 2017-07-20 12:58 | DS ---
CC: Dr. Aniceto Cole; [facility]* DATE OF ADMISSION: 07/16/2017. DATE OF DISCHARGE: 07/20/2017. PRIMARY CARE PHYSICIAN: Dr. Aniceto Cole. PRIMARY DIAGNOSES: Right humeral fracture, hypertension, diabetes, dementia, atrial fibrillation. MEDICATIONS ON DISCHARGE: 1. Atorvastatin 10 mg daily. 2. Metoprolol 25 mg twice daily. 3. Amiodarone 200 mg daily. 4. Seroquel 25 mg at bedtime. 5. Nickerson 5/325 one tab every 6 hours as needed for pain. 6. Metamucil one packet daily. 7. MiraLax 17 mg daily as needed for constipation. PERTINENT LABORATORY DATA: Hemoglobin on discharge 10.9. INR 0.97. Last set of basic metabolic panel was performed July 17: TSH 4.71, free T4 0.71, free T3 2.4. HISTORY OF PRESENT ILLNESS AND HOSPITAL COURSE: This is a 77-year-old female who presented to the hospital after a mechanical fall at home with a right humeral fracture. During the course of the hospital stay, it was noted that she was unable to be discharged safely at home. She has dementia. She was A and O times two on the discharge to her name and to a hospital, though not the name or the year. However, there was some concern that she has some concomitant mental illness in conjunction with her dementia, undiagnosed at this time. She was treated with Metoprolol and Amiodarone for continued paroxysmal atrial fibrillation, although she is not on chronic anticoagulation. She will be discharged to [facility] from the hospital. There were no complications during the course of this hospital stay. Greater than 45 minutes were spent in the discharge of this patient, greater than half spent [id number] with the patient. [id number]/[facility] #: [id number] [facility]ITAL[facility]
== END 2017-07-20 14:00 | DRG 563 ==
LOC: ED 15:58 → MED 18:04
PROVIDERS: ADMIT Hospitalist; ATTEND Internal Medicine
DX: S42.211A Unspecified displaced fracture of surgical neck of right humerus, initial encounter for closed fracture (principal); I48.91 Unspecified atrial fibrillation; F03.90 Unspecified dementia, unspecified severity, without behavioral disturbance, psychotic disturbance, mood disturbance, and anxiety; I11.9 Hypertensive heart disease without heart failure; W18.30XA Fall on same level, unspecified, initial encounter; Y92.9 Unspecified place or not applicable; E11.9 Type 2 diabetes mellitus without complications; Z96.642 Presence of left artificial hip joint; Z79.01 Long term (current) use of anticoagulants; Z79.1 Long term (current) use of non-steroidal anti-inflammatories (NSAID); Z79.82 Long term (current) use of aspirin; Z79.4 Long term (current) use of insulin; Z79.899 Other long term (current) drug therapy; E78.5 Hyperlipidemia, unspecified; I25.10 Atherosclerotic heart disease of native coronary artery without angina pectoris; Z95.5 Presence of coronary angioplasty implant and graft; R32 Unspecified urinary incontinence
CPT/HCPCS: 36415; 80048; 80053; 81003; 81015; 82565; 83036; 84439; 84443; 84479; 84481; 84520; 85025; 85027; 85610; 85730; 93005; 94760; A9270-GY; J1644; J2270

== ENCOUNTER 2019-04-02 10:15 | Emergency (ER) | payer MEDICARE, MEDICAID ==
--- NOTE | 2019-04-02 10:28 | ED ---
Head Injury - HPI Summary HPI Summary: Patient is a 78-year-old female who presents to emergency department for evaluation after a fall that occurred shortly prior to arrival. Patient resides at [facility]. Patient is a history of dementia, hypothyroidism, hypertension, diabetes. Staff reportedly found patient on the ground with a contusion to her scalp. Patient states that she was trying to move heavy boxes by herself when she fell to the ground. Patient baseline confusion. Patient is awake and alert and oriented to self only. Staff state the patient was recently moved brooms and state that she was looking for her old room. No reported recent sickness, fever, abdominal pain, vomiting, diarrhea, chest pain, shortness of breath. History from patient is limited secondary to dementia. Symptoms are moderate in severity. No current modifying factors. Patient has no complaints. - History Of Current Complaint Stated Complaint: FALL PER EMS Time Seen by Provider: 04/02/19 10:18 Hx Obtained From: Patient, EMS - Allergies/Home Medications Allergies/Adverse Reactions: Allergies Allergy/AdvReac Type Severity Reaction Status Date / Time No Known Allergies Allergy Verified 08/27/13 09:07 PMH/Surg Hx/FS Hx/Imm Hx Previously Healthy: Yes Endocrine/Hematology History: Reports: Hx Diabetes Denies: Hx Anemia Cardiovascular History: Reports: Hx Atrial Fibrillation, Hx Hypertension GI History: Denies: Hx Jaundice Sensory History: Denies: Hx Contacts or Glasses, Hx Hearing Aid Opthamlomology History: Denies: Hx Contacts or Glasses - Surgical History Surgery Procedure, Year, and Place: left hip replacement; - Family History Known Family History: Positive: Diabetes, Non-Contributory - Social History Occupation: Retired Lives: At [facility] Alcohol Use: None Substance Use Type: Reports: None Smoking Status (MU): Unknown if Ever Smoked Review of Systems - ROS Summary Review of Systems Summary: History is limited secondary to pt.'s baseline dementia. Cardiovascular: Negative Negative: Chest Pain Respiratory: Negative Negative: Shortness Of Breath Gastrointestinal: Negative Musculoskeletal: Negative Skin: Negative Neurological: Negative All Other Systems Reviewed And Are Negative: Yes Physical Exam Triage Information Reviewed: Yes Vital Signs Reviewed: Yes Completion Of Physical Exam Limited Due To: Dementia Appearance: Positive: Well-Appearing - Pt. sitting up in bed in NAD. Talkative. Oriented to self only. Skin: Positive: Warm, Dry Head/Face: Positive: Other - Contusion noted to mid left scalp without break in skin. Eyes: Positive: Normal, EOMI, DAWSON Diagnostics - Laboratory Result Diagrams: 04/02/19 10:44 04/02/19 10:44 Lab Statement: Any lab studies that have been ordered have been reviewed, and results considered in the medical decision making process. Head Injury Course/Dx Course Of Treatment: Patient presenting for elevation after [facility]. Chest is afebrile with normal vital signs. Patient has no complaints. She does have a hematoma to scalp. Basic imaging and blood work obtained. Patient with baseline dementia. Blood work is unremarkable. Imaging of the brain, chest and pelvis are negative for acute findings, reading per radiology. UA negative for infection. ECG done at 1029 shows a sinus rhythm of 72bpm, noraml axis, incomplete LBBB, similar to prior tracing. Pt. amublated in hallway with walker and assistance. Pt. son present and states she is at her baseline mentation. [facility] with pcp in 1 week. Will return to ER if sxs change or worsen. - Diagnoses Differential Diagnosis/HQI/PQRI: Concussion Without LOC, Contusion, Hematoma, Intracranial Bleed, Laceration Provider Diagnoses: Fall, Scalp contusion Discharge - Sign-Out/Discharge Documenting (check all that apply): Patient Departure Patient Received Moderate/Deep Sedation with Procedure: No - Discharge Plan Condition: Good Disposition: HOME Patient Education Materials: Head Injury (ED), Fall Prevention (ED) Referrals: Dixie Doherty DO [Primary Care Provider] - Additional Instructions: Schedule follow up with PCP within in one week for recheck Return to ER if symptoms change or worsen - Billing Disposition and Condition Condition: GOOD Disposition: Home
[2019-04-02 10:52] LABS: ABS Basophils 0.1 10^3/ul (0-0.2); ABS Eosinophils 0.2 10^3/ul (0-0.6); ABS Lymphocytes 0.7 10^3/ul (1.0-4.8); ABS Monocytes 0.8 10^3/ul (0-0.8); ABS Neutrophils 8.6 10^3/ul (1.5-7.7); Eosinophil % 1.5 %; Hematocrit 39 % (35-47); Hemoglobin 12.6 g/dL (12.0-16.0); Lymphocyte % 6.7 %; Mean Corpuscular HGB Conc 33 g/dL (31-36); Mean Corpuscular Hemoglobin 30 pg (27-31); Mean Corpuscular Volume 91 fL (80-97); Mean Platelet Volume 9.3 fL (7.4-10.4); Platelet Count 215 10^3/uL (150-450); Red Blood Count 4.26 10^6 /uL (3.70-4.87); Red Cell Distribution Width 14 % (10-15); White Blood Count 10.4 10^3/uL (3.5-10.8)
[2019-04-02 11:11] LABS: Albumin 4.3 g/dL (3.2-5.2); Albumin/Globulin Ratio 1.7 (1-3); BUN/Creatinine Ratio 27.9 (8-20); Calcium 9.1 mg/dL (8.6-10.3); EGFR African American 57.2 (>60); EGFR Non-African American 47.3 (>60); Globulin 2.6 g/dL (2-4); Potassium 4.2 mmol/L (3.5-5.0); Total Bilirubin 0.6 mg/dL (0.2-1.0); Total Protein 6.9 g/dL (6.4-8.9)
[2019-04-02 11:12] LABS: Troponin I 0.01 ng/mL (<0.04)
[2019-04-02 12:09] LABS: Urine Appearance Cloudy; Urine Bilirubin Negative (Negative); Urine Blood Negative (Negative); Urine Color Yellow; Urine Glucose Negative (Negative); Urine Ketones Negative (Negative); Urine Nitrite Negative (Negative); Urine Protein Negative (Negative); Urine Specific Gravity 1.026 (1.010-1.030); Urine Urobilinogen Negative (Negative)
[2019-04-02 13:08] VITALS: BP 129/70
== END 2019-04-02 13:07 | disposition home or self-care (01) ==
LOC: ED 10:15
DX: S00.03XA Contusion of scalp, initial encounter (principal); W19.XXXA Unspecified fall, initial encounter; Y92.129 Unspecified place in nursing home as the place of occurrence of the external cause; E11.9 Type 2 diabetes mellitus without complications; I48.91 Unspecified atrial fibrillation; I10 Essential (primary) hypertension; F03.90 Unspecified dementia, unspecified severity, without behavioral disturbance, psychotic disturbance, mood disturbance, and anxiety
CPT/HCPCS: 36415; 70450; 71045; 72170; 80053; 81003; 84484; 85025; 93005; 99283

== ENCOUNTER 2019-05-17 00:28 | Inpatient (IN) | payer MEDICARE, MEDICAID ==
[2019-05-17] MEDS ORDERED: NS 0.9% 1000 ML** 1,000 ML IV ONE (01:04)
[2019-05-17] MEDS ORDERED: Acetaminophen TAB* 325 MG PO ONE (01:12)
[2019-05-17] MEDS ORDERED: Albuterol/Ipratropium NEB.SOL* Albuterol 2.5 MG/Ipratropium 0.5 MG 3 ML INH ONE (01:15)
--- NOTE | 2019-05-17 01:15 | ED ---
Psychiatric Complaint - History Of Current Complaint Chief Complaint: EDShortnessOfBreath Time Seen by Provider: 05/17/19 01:03 - Allergies/Home Medications Allergies/Adverse Reactions: Allergies Allergy/AdvReac Type Severity Reaction Status Date / Time No Known Allergies Allergy Verified 08/27/13 09:07 PMH/Surg Hx/FS Hx/Imm Hx Endocrine/Hematology History: Reports: Hx Diabetes Denies: Hx Anemia Cardiovascular History: Reports: Hx Atrial Fibrillation, Hx Hypertension Respiratory History: Denies: Hx Asthma, Hx Chronic Obstructive Pulmonary Disease (COPD) GI History: Denies: Hx Jaundice Sensory History: Denies: Hx Contacts or Glasses, Hx Hearing Aid Opthamlomology History: Denies: Hx Contacts or Glasses - Surgical History Surgery Procedure, Year, and Place: left hip replacement; Infectious Disease History: No Infectious Disease History: Denies: Traveled Outside the [place] in Last 30 Days - Family History Known Family History: Positive: Diabetes, Non-Contributory - Social History Alcohol Use: None Substance Use Type: Reports: None Smoking Status (MU): Unknown if Ever Smoked Review of Systems Positive: Fever Negative: Chest Pain Positive: Shortness Of Breath, Cough All Other Systems Reviewed And Are Negative: Yes Physical Exam Triage Information Reviewed: Yes Vital Signs On Initial Exam: Initial Vitals Temp Pulse Resp BP Pulse Ox 100.3 F 82 26 138/59 96 05/17/19 00:51 05/17/19 00:51 05/17/19 00:51 05/17/19 00:51 05/17/19 00:51 Vital Signs Reviewed: Yes Completion Of Physical Exam Limited Due To: Dementia Appearance: Positive: Well-Appearing Skin: Positive: Warm, Dry Head/Face: Positive: Normal Head/Face Inspection Eyes: Positive: Normal, EOMI, DAWSON, Conjunctiva Clear ENT: Positive: Pharynx normal, TMs normal Respiratory/Lung Sounds: Positive: Breath Sounds Present, Rales Cardiovascular: Positive: Normal, RRR Abdomen Description: Positive: Nontender, Soft Bowel Sounds: Positive: Present Musculoskeletal: Positive: Normal Neurological: Negative: Alert, Oriented to Person Place, Time Psychiatric: Positive: Normal Diagnostics - Vital Signs Vital Signs Temp Pulse Resp BP Pulse Ox 05/17/19 00:51 100.3 F 82 26 138/59 96 - Laboratory Lab Statement: Any lab studies that have been ordered have been reviewed, and results considered in the medical decision making process. - EKG No standard instances Cardiac Rate: NL EKG Rhythm: Sinus Rhythm Summary of EKG Findings: sinus rhythm Discharge - Discharge Plan Referrals: Dixie Doherty DO [Primary Care Provider] -
--- NOTE | 2019-05-17 01:30 | ED ---
Respiratory - HPI Summary HPI Summary: 79-year-old female presents with worsening cough and shortness of breath today. Was just diagnosed with pneumonia based on chest x-ray. No antibiotics on at the moment per DEC. She was given a DuoNeb by EMS with improvement. No history of asthma or COPD. Offering no complaints at this time. Has a fever. No chest pain. LEVEL 5 Cavet due to dementia. limited hx given by son. has history of dm. came in with a fever. - History of Current Complaint Chief Complaint: EDShortnessOfBreath Stated Complaint: SOB PER EMS Time Seen by Provider: 05/17/19 01:03 Pain Intensity: 0 - Allergy/Home Medications Allergies/Adverse Reactions: Allergies Allergy/AdvReac Type Severity Reaction Status Date / Time No Known Allergies Allergy Verified 08/27/13 09:07 Home Medications: Home Medications Acetaminophen [Acetaminophen ER] 650 mg PO PRN 05/17/19 [History] Aspirin [Ecotrin Low Strength] 81 mg PO DAILY 05/17/19 [History Confirmed ] Levothyroxine TAB* [Synthroid 25 MCG TAB*] 25 mcg PO DAILY 05/17/19 [History Confirmed 05/17/19] Magnesium Hydroxide [Milk of Magnesia] 400 mg PO BID PRN 05/17/19 [History Confirmed 05/17/19] Metformin HCl 500 mg PO BID 05/17/19 [History Confirmed 05/17/19] guaiFENesin ER TAB [Mucinex*] 600 mg PO BID 05/17/19 [History Confirmed 05/17/19 ] PMH/Surg Hx/FS Hx/Imm Hx Endocrine/Hematology History: Reports: Hx Diabetes Denies: Hx Anemia Cardiovascular History: Reports: Hx Atrial Fibrillation, Hx Hypertension Respiratory History: Denies: Hx Asthma, Hx Chronic Bronchitis GI History: Denies: Hx Jaundice Sensory History: Denies: Hx Contacts or Glasses, Hx Hearing Aid Opthamlomology History: Denies: Hx Contacts or Glasses - Surgical History Surgery Procedure, Year, and Place: left hip replacement; Infectious Disease History: No Infectious Disease History: Denies: Traveled Outside the [place] in Last 30 Days - Family History Known Family History: Positive: Diabetes, Non-Contributory - Social History Alcohol Use: None Substance Use Type: Reports: None Smoking Status (MU): Unknown if Ever Smoked Review of Systems Positive: Fever Negative: Chest Pain Positive: Shortness Of Breath, Cough All Other Systems Reviewed And Are Negative: Yes Physical Exam Triage Information Reviewed: Yes Vital Signs On Initial Exam: Initial Vitals Temp Pulse Resp BP Pulse Ox 100.3 F 82 26 138/59 96 05/17/19 00:51 05/17/19 00:51 05/17/19 00:51 05/17/19 00:51 05/17/19 00:51 Vital Signs Reviewed: Yes Completion Of Physical Exam Limited Due To: Dementia Appearance: Positive: Well-Appearing Skin: Positive: Warm, Dry Head/Face: Positive: Normal Head/Face Inspection Eyes: Positive: Normal, Conjunctiva Clear ENT: Positive: Pharynx normal Respiratory/Lung Sounds: Positive: Breath Sounds Present, Rales Cardiovascular: Positive: Normal, RRR Abdomen Description: Positive: Nontender, Soft Bowel Sounds: Positive: Present Musculoskeletal: Positive: Normal Neurological: Positive: Sensory/Motor Intact. Negative: Alert, Oriented to Person Place, Time Psychiatric: Positive: Normal Diagnostics - Vital Signs Vital Signs Temp Pulse Resp BP Pulse Ox 05/17/19 00:51 100.3 F 82 26 138/59 96 - Laboratory Result Diagrams: 05/17/19 01:36 05/17/19 01:36 Lab Statement: Any lab studies that have been ordered have been reviewed, and results considered in the medical decision making process. - Radiology chest Radiology Interpretation Completed By: ED Physician Summary of Radiographic Findings: hilar infiltrate - EKG No standard instances Cardiac Rate: NL EKG Rhythm: Sinus Rhythm EKG Comparison: No Significant Change Summary of EKG Findings: sinus rhythm Disposition - Course Course Of Treatment: 79-year-old female presents with worsening cough and shortness of breath today. Was just diagnosed with pneumonia based on chest x- ray. No antibiotics on at the moment per DEC. She was given a DuoNeb by EMS with improvement. No history of asthma or COPD. Offering no complaints at this time. Has a fever. No chest pain. LEVEL 5 Cavet due to dementia. on exam rales heard. chest xray shows hilar infiltrate. has fever here. wbc elevated. bnp elevated. require 2 liters of oxygen, troponin .17. gave cefepime due to being from [facility]. discussed case with dr swenson who agrees to admit. - Differential Dx - Cardiopulmonary Differential Diagnoses - Cardiopulmonary: Bronchitis, CHF, Lower Resp Infection - Diagnoses Provider Diagnoses: Pneumonia Discharge - Sign-Out/Discharge Documenting (check all that apply): Patient Departure - Discharge Plan Condition: Stable Disposition: ADMITTED TO [facility] Referrals: Dixie Doherty DO [Primary Care Provider] - - Billing Disposition and Condition Condition: STABLE Disposition: Admitted to [facility]
[2019-05-17] MEDS ORDERED: Cefepime 2 GM in Dextrose(*) 2 GM/50 ML BAG IV ONE (01:36)
[2019-05-17 01:50] LABS: ABS Basophils 0.1 10^3/ul (0-0.2); ABS Lymphocytes 0.6 10^3/ul (1.0-4.8); ABS Monocytes 1.2 10^3/ul (0-0.8); ABS Neutrophils 11.4 10^3/ul (1.5-7.7); Hematocrit 36 % (35-47); Hemoglobin 12.1 g/dL (12.0-16.0); Lymphocyte % 4.6 %; Mean Corpuscular HGB Conc 33 g/dL (31-36); Mean Corpuscular Hemoglobin 30 pg (27-31); Mean Corpuscular Volume 88 fL (80-97); Mean Platelet Volume 9.2 fL (7.4-10.4); Platelet Count 199 10^3/uL (150-450); Red Blood Count 4.09 10^6 /uL (3.70-4.87); Red Cell Distribution Width 14 % (10-15); White Blood Count 13.3 10^3/uL (3.5-10.8)
[2019-05-17 01:59] LABS: Activated Partial Thrombo Time 32.8 seconds (26.0-38.0); INR 0.99 (0.82-1.09)
[2019-05-17 02:07] LABS: ALT 12 U/L (7-52); AST 14 U/L (13-39); Albumin/Globulin Ratio 1.6 (1-3); Alkaline Phosphatase 74 U/L (34-104); Anion Gap 12 mmol/L (2-11); BUN/Creatinine Ratio 27.8 (8-20); Blood Urea Nitrogen 27 mg/dL (6-24); C Reactive Protein 86.28 mg/L (<8.01); CO2 Carbon Dioxide 22 mmol/L (22-32); Calcium 8.7 mg/dL (8.6-10.3); Chloride 103 mmol/L (101-111); EGFR African American 66.7 (>60); EGFR Non-African American 55.1 (>60); Globulin 2.5 g/dL (2-4); Glucose 159 mg/dL (70-100); Potassium 3.8 mmol/L (3.5-5.0); Sodium 137 mmol/L (135-145); Total Protein 6.5 g/dL (6.4-8.9)
[2019-05-17 02:14] LABS: Troponin I 0.17 ng/mL (<0.04)
--- NOTE | 2019-05-17 03:59 | HP ---
History of Present Illness - History of Present Illness Reason for Visit: Pneumonia History of Present Illness: Ms. Marcela Bentley is a 79-year-old right hand dominant female with dementia, AFib , hypertension, diabetes, who sustained a fall potentially on 07/15/17. She is not a good historian, per ER records patient was diagnosed with pneumonia at [facility] yesterday but wasn't started on any ABx. Came in due to worsening shortness of breath. No other complaints from patient at this point due to her dementia. PAST MEDICAL HISTORY: Hypertension Diabetes Dementia Atrial fibrillation PAST SURGICAL HISTORY: History of left hip hemiarthroplasty. FAMILY HISTORY: Unavailable to obtain because of her confusion. SOCIAL HISTORY: She does not smoke or drink. Her surrogate decision maker is her son. Allergies Allergy/AdvReac Type Severity Reaction Status Date / Time No Known Allergies Allergy Verified 08/27/13 09:07 Home Medications Medication Instructions Recorded Confirmed Type Amiodarone TAB* [Cordarone Tab*] 200 mg PO DAILY 07/16/17 05/17/19 History Atorvastatin* [Lipitor 10 MG*] 10 mg PO DAILY 07/16/17 05/17/19 History HYDROcodone/ACETAMIN 5-325 MG* 1 tab PO Q6H PRN #20 tab MDD 4 07/16/17 05/17/19 Rx [[place] 5-325 TAB*] Metoprolol Tartrate TAB* 25 mg PO DAILY 07/16/17 05/17/19 History [Lopressor TAB*] Acetaminophen [Acetaminophen ER] 650 mg PO Q4HR 05/17/19 05/17/19 History Aspirin [Ecotrin Low Strength] 81 mg PO DAILY 05/17/19 05/17/19 History Levothyroxine TAB* [Synthroid 25 25 mcg PO DAILY 05/17/19 05/17/19 History MCG TAB*] Magnesium Hydroxide [Milk of 400 mg PO BID PRN 05/17/19 05/17/19 History Magnesia] Metformin HCl 500 mg PO BID 05/17/19 05/17/19 History guaiFENesin ER TAB [Mucinex*] 600 mg PO BID 05/17/19 05/17/19 History Review of Systems - Measurements Intake and Output: Intake and Output Last 24 Hours 05/14/19 05/15/19 05/16/19 05/17/19 06:59 06:59 06:59 06:59 Weight 140 lb - Review of Systems General Comments: Unable to obtain due to her dementia Objective Vital Signs - 8 hr 05/17/19 05/17/19 05/17/19 00:51 01:15 01:43 Temperature 100.3 F Pulse Rate 82 Respiratory 26 30 23 Rate Blood Pressure 138/59 126/51 (mmHg) O2 Sat by Pulse 96 Oximetry 05/17/19 05/17/19 05/17/19 02:00 02:01 02:13 Temperature Pulse Rate 69 Respiratory 22 22 24 Rate Blood Pressure 110/49 (mmHg) O2 Sat by Pulse 92 Oximetry 05/17/19 05/17/19 05/17/19 02:30 03:00 03:01 Temperature Pulse Rate 69 Respiratory 23 19 21 Rate Blood Pressure 107/49 112/51 (mmHg) O2 Sat by Pulse 90 Oximetry Oxygen Devices in Use Now: Nasal Cannula Eyes: No Scleral Icterus, PERRLA Ears/Nose/Mouth/Throat: Clear Oropharnyx, - - Mucous membranes appear dry. Respiratory: - - Diffuse ronchi with some wheezing. Cardiovascular: NL Sounds; No Murmurs; No JVD, RRR, No Edema Abdominal: NL Sounds; No Tenderness; No Distention, No Hepatosplenomegaly Skin: No Rash or Ulcers Neurological: - - Pleasently demented and confused. Result Diagrams: 05/17/19 04:48 05/17/19 01:36 Diagnostic Imaging: CXR suggests increased hilar marking and per ER staff X-ray from [facility] was read as hilar infiltrate. Official Radiology read pending. EKG Data: When compared to old EKG from month ago essentially unchanged. It is sinus with few atrial beats with a rate of 76bpm. Assess/Plan/Problems-Billing Assessment: 79yoF with DM, A. Fib not on AC, here due to pneumonia with CURB65 score of 3-4 as patient does have confusion at baseline. Sepsis secondary to HCAP ROMELIA Hx of A. Fib not on AC currently in sinus Diabetes Type 2 Elevated troponin ?due to sepsis. Plan Start Vanco/Zosyn. Follow up sputum cultures/blood cultures/urine antigens. Start duonebs PRN and continue O2 via Nasal cannula. Start eulalia hydration in light of elevated BNP although patient doesn't have obvious CHF signs. Follow up serial troponin and ECHO. Restart home meds. DVT Ppx with heparin subcu.
[2019-05-17] MEDS ORDERED: Albuterol 2.5 MG/3 ML NEB.SOL* (0.083%) INH PRN (04:13)
[2019-05-17] MEDS ORDERED: NS 0.9% 1000 ML** 1,000 ML IV SCH (04:15)
[2019-05-17] MEDS ORDERED: Vancomycin(*) 1,000 MG in NS 0.9% 250 ML* 250 ML IVPB ONE (05:08)
[2019-05-17 05:24] LABS: ABS Basophils 0.1 10^3/ul (0-0.2); ABS Lymphocytes 0.8 10^3/ul (1.0-4.8); ABS Monocytes 1.1 10^3/ul (0-0.8); Hematocrit 34 % (35-47); Hemoglobin 11.3 g/dL (12.0-16.0); Lymphocyte % 6.5 %; Mean Corpuscular HGB Conc 33 g/dL (31-36); Mean Corpuscular Hemoglobin 29 pg (27-31); Mean Corpuscular Volume 88 fL (80-97); Mean Platelet Volume 9.7 fL (7.4-10.4); Platelet Count 187 10^3/uL (150-450); Red Blood Count 3.83 10^6 /uL (3.70-4.87); Red Cell Distribution Width 14 % (10-15)
[2019-05-17 05:37] LABS: Anion Gap 12 mmol/L (2-11); BUN/Creatinine Ratio 25.5 (8-20); Blood Urea Nitrogen 27 mg/dL (6-24); CO2 Carbon Dioxide 22 mmol/L (22-32); Calcium 8.7 mg/dL (8.6-10.3); Chloride 105 mmol/L (101-111); EGFR African American 60.2 (>60); EGFR Non-African American 49.8 (>60); Glucose 148 mg/dL (70-100); Potassium 3.8 mmol/L (3.5-5.0); Sodium 139 mmol/L (135-145)
[2019-05-17 05:42] LABS: Troponin I 0.16 ng/mL (<0.04)
[2019-05-17] MEDS ORDERED: Vancomycin(*) 0 MG in NS 0.9% 250 ML* 250 ML IVPB SCH (06:00)
[2019-05-17] MEDS ORDERED: ZOSYN 3.375 GM x ONE DOSE over 30 miuntes IVPB ×2 (06:00)
[2019-05-17 08:37] LABS: Troponin I 0.15 ng/mL (<0.04)
[2019-05-17] MEDS: Enoxaparin(*) 30 MG/0.3 ML SYR SUBCUT SCH (09:43)
[2019-05-17] MEDS ORDERED: Zosyn per Pharmacy* NOTE FOLLOW UP PRN (10:06)
[2019-05-17] MEDS ORDERED: Vancomycin per Pharmacy* NOTE FOLLOW UP PRN (10:50)
[2019-05-17] MEDS ORDERED: Piperacillin/Tazobac ADVAN(*) 3.375 GM in NS 0.9% 100 ML* 100 ML IVPB SCH (11:00)
[2019-05-17 11:36] LABS: Troponin I 0.11 ng/mL (<0.04)
--- NOTE | 2019-05-17 11:50 | ECHO ---
*[facility]* [place] [address] Fax #: [phone] Transthoracic Echocardiogram Patient: Marcela Bentley I : 1940 Study Date: 05/17/2019 Age: 79 Gender: F HR: 70 bpm Height: 64 in /162.6 cm BSA: 1.68 m^2 Weight: 139.7 lb /63.5 kg BMI: 24 kg/m^2 *Ocean Export Agent: * Huyen Contreras [facility] *Referring Physician: * Garrick Wilkerson *Reading Physician: * Brady Orr MD Indications: Congestive Heart Failure. Elevated troponin level. History: Atrial fibrillation. Risk factors: Hypertension. Diabetes mellitus. Dementia. Conclusions Summary: - Left ventricle: Systolic function is normal. The estimated ejection fraction is 55-60%. Wall motion is normal; there are no regional wall motion abnormalities. - Right ventricle: Systolic function is normal. - Left atrium: The atrium is severely dilated. - Mitral valve: There is mild regurgitation. - Aortic valve: The valve is trileaflet. The leaflets are mildly thickened. The findings are consistent with moderate stenosis. The peak systolic velocity is 2.9 m/sec. The mean systolic gradient is 16.0 mm Hg. - Tricuspid valve: There is moderate regurgitation. - Pulmonary arteries: Systolic pressure is mildly to moderately increased. - Study data: No prior study is available for comparison. Study data: Transthoracic echocardiogram. Procedure: Transthoracic echocardiography was performed. Image quality was fair. The study was technically limited due to poor patient compliance. Complete 2D, spectral Doppler, and color flow Doppler. Location: Bedside. Patient status: Inpatient. Patient room number: 436. No prior study is available for comparison. Rhythm: Normal sinus rhythm with PAC's. Findings Left ventricle: The cavity size is normal. Wall thickness is moderately increased. Systolic function is normal. The estimated ejection fraction is 55-60%. Wall motion is normal; there are no regional wall motion abnormalities. There is no consistent Doppler evidence of clinically significant diastolic dysfunction. Right ventricle: The cavity size is mildly dilated. The moderator band is in a normal position. Systolic function is normal. Systolic pressure is mildly to moderately increased. Ventricular septum: There is septal flattening of the interventricular septum consistent with RV volume or pressure overload. Left atrium: The atrium is severely dilated. Right atrium: The atrium is moderately to severely dilated. Mitral valve: Is mildly calcified. The leaflets are mildly thickened. There is no evidence of stenosis. There is mild regurgitation. Aortic valve: The valve is trileaflet. The leaflets are mildly thickened. The findings are consistent with moderate stenosis. There is trace regurgitation. Tricuspid valve: The leaflets are normal thickness. There is no evidence of stenosis. There is moderate regurgitation. Pulmonic valve: The leaflets are normal thickness. There is no evidence of stenosis. There is trace regurgitation. Aorta: Aortic root: The aortic root is appears normal. Ascending aorta: The ascending aorta is appears normal. Aortic arch: The aortic arch is poorly visualized. Pericardium: A prominent pericardial fat pad is present. There is no significant pericardial effusion. Pulmonary arteries: The main pulmonary artery is normal-sized. Systolic pressure is mildly to moderately increased. Systemic veins: Inferior vena cava: The vessel is normal in size. There is (>= 50%) respiratory change in the IVC dimension. Measurements Left ventricle Value Ref Aortic valve Value Ref CARLOS, LAX 4.6 cm 3.8 - 5.2 Truman diam, ED 2.2 cm ----- ESD, LAX 3.0 cm 2.2 - 3.5 Peak v, S 2.9 m/sec ----- FS, LAX 35 % 27 - 45 VTI, S 62.0 cm ----- PW, ED, LAX (H) 1.3 cm 0.6 - 0.9 Mean grad, S 16.0 mm Hg ----- FS 34 % 27 - 45 Peak grad, S 35.0 mm Hg ----- PW, ED (H) 1.3 cm 0.6 - 0.9 LVOT/AV, VTI ratio 0.32 ----- E', lat truman, TDI (L) 8.1 cm/sec >=10.0 USAMA, VTI 1.01 cm^2 --- -- E/e', lat truman, 11 USAMA, Vmax 0.91 cm^2 ----- TDI E', med truman, TDI 8.5 cm/sec >=7.0 Mitral valve Value Ref E/e', med truman, 10 Peak E 0.89 m/sec ----- TDI Peak A 0.74 m/sec ----- E', avg, TDI 8.3 cm/sec Decel time 201 ms ----- E/e', avg, TDI 11 <=14 Peak grad, D 3.2 mm Hg --- -- Peak E/A ratio 1.2 ----- LVOT Value Ref Diam, S 2.00 cm Pulmonic valve Value Ref Area 3.1 cm^2 Peak v, S 0.84 m/sec ----- Peak germania, S 0.84 m/sec Peak grad, S 3.0 mm Hg ----- VTI, S 20.0 cm Mean grad, S 1 mm Hg Tricuspid valve Value Ref SV 61 ml TR peak v (H) 3.1 m/sec <=2.8 SV/bsa 36 ml/m^2 Peak RV-RA grad, S 38 mm Hg ----- Ventricular septum Value Ref Aortic root Value Ref IVS, ED (H) 1.3 cm 0.6 - 0.9 Root diam 3.0 cm <3.9 Right ventricle Value Ref Ascending aorta Value Ref CARLOS, LAX 3.2 cm AAo AP diam, S 3.5 cm ----- CAROLS minor ax, A4C (H) 4.8 cm 1.9 - 3.5 mid Decending aorta Value Ref Pressure, S 41 mm Hg Pramod peak germania 0.59 m/sec ----- Left atrium Value Ref Pulmonary artery Value Ref AP dim, ES (H) 4.10 cm 2.70 - Pressure, S 38.0 mm Hg ----- 3.80 ML dim, A4C 5.0 cm Inferior vena cava Value Ref SI dim, A4C 5.8 cm Diam 1.8 cm ----- Vol/bsa, ES, 1-p (H) 54 ml/m^2 11 - 40 A4C Vol/bsa, ES, A/L (H) 68 ml/m^2 16 - 34 Right atrium Value Ref SI dim, ES (H) 6.0 cm 3.4 - 5.3 ML dim, ES, A4C 4.4 cm 2.6 - 4.4 SI dim, ES, A4C (H) 6.0 cm 3.4 - 5.3 Estimated RAP 3 mm Hg Legend: (L) and (H) christopher values outside specified reference range. Prepared and electronically signed by Brady Orr MD 05/17/2019 11:49
[2019-05-17] MEDS: ZOSYN 3.375 GM Q8H per EXTENDED INFUSION IVPB SCH ×4 (15:56→23:57)
--- NOTE | 2019-05-17 20:06 | PN ---
Subjective Date of Service: 05/17/19 Interval History: Confused resting in bed, no acute distress. patient with dementia at baseline. offers no complaints Family at the bedside and updated on patients condition and test results Family History: Unchanged from Admission Social History: Unchanged from Admission Past Medical History: Unchanged from Admission Objective Active Medications: Albuterol (Ventolin 2.5 Mg/3 Ml Neb.Luzma*) 2.5 mg INH [id number] AWAKE PRN PRN Reason: sob/wheezing Enoxaparin Sodium (Lovenox(*)) 30 mg SUBCUT Q24H [facility] Last Admin: 05/17/19 09:43 Dose: 30 mg Vancomycin HCl 750 mg/ Sodium (Chloride) 250 mls @ 166.667 mls/hr IVPB Q12H [facility] Piperacillin Sod/Tazobactam (Sod 3.375 gm/ Sodium Chloride) 100 mls @ 25 mls/ hr IVPB Q8H [facility] Last Admin: 05/17/19 15:56 Dose: 25 mls/hr Sodium Chloride (Ns 0.9% 1000 Ml) 1,000 mls @ 75 mls/hr IV PER RATE [facility] Pharmacy Consult (Zosyn Per Pharmacy*) 1 note FOLLOW UP . PRN PRN Reason: PER PROTOCOL Pharmacy Consult (Vancomycin Per Pharmacy*) 1 note FOLLOW UP . PRN PRN Reason: PER PROTOCOL Pharmacy Profile Note (Vancomycin Trough Check) 1 note FOLLOW UP 929 ONE Stop: 05/19/19 09:31 Vital Signs - 8 hr 05/17/19 15:40 Temperature 97.4 F Pulse Rate 60 Respiratory 19 Rate Blood Pressure 117/52 (mmHg) O2 Sat by Pulse 98 Oximetry Oxygen Devices in Use Now: Nasal Cannula Appearance: appears comfortable resting in bed Eyes: No Scleral Icterus Ears/Nose/Mouth/Throat: Clear Oropharnyx, Mucous Membranes Moist Neck: NL Appearance and Movements; NL JVP, Trachea Midline Respiratory: Symmetrical Chest Expansion and Respiratory Effort, - - diminished on the right Cardiovascular: NL Sounds; No Murmurs; No JVD, No Edema Abdominal: NL Sounds; No Tenderness; No Distention Extremities: No Clubbing, Cyanosis Skin: No Rash or Ulcers Neurological: - - confused- place and time Nutrition: Taking PO's Result Diagrams: 05/17/19 04:48 05/17/19 04:48 Microbiology and Other Data: Microbiology 05/17/19 09:20 Nasal Screen MRSA (PCR) - Final Nasal Mrsa Not Detected Diagnostic Imaging: CXR suggests increased hilar marking and per ER staff X-ray from [facility] was read as hilar infiltrate. Official Radiology read pending. EKG Data: When compared to old EKG from month ago essentially unchanged. It is sinus with few atrial beats with a rate of 76bpm. Assess/Plan/Problems-Billing Assessment: 79yoF with DM, A. Fib not on AC, here due to pneumonia with CURB65 score of 3-4 as patient does have confusion at baseline. Sepsis secondary to HCAP with elevated troponin. - Patient Problems (1) Sepsis Current Visit: Yes Status: Acute Comment: -Patient met sepsis criteria with elevated WBC's, tachypnea and pneumonia - was started on zosyn and vancomycin - MRSA negative - will stop vancomycin (2) Pneumonia Current Visit: Yes Status: Acute Code(s): J18.9 - PNEUMONIA, UNSPECIFIED ORGANISM SNOMED Code(s): 629323611 Comment: Bilat ninfa-hilar pneumonia - will continue zosyn (3) Elevated troponin Current Visit: Yes Status: Acute Code(s): R74.8 - ABNORMAL LEVELS OF OTHER SERUM ENZYMES SNOMED Code(s): 776415961 Comment: -suspect this is related to demand ischemia from sepsis and pneumonia (4) Dementia Current Visit: No Status: Chronic Priority: Medium Code(s): F03.90 - UNSPECIFIED DEMENTIA WITHOUT BEHAVIORAL DISTURBANCE SNOMED Code(s): 26958177 Comment: supportive care (5) History of atrial fibrillation Current Visit: No Status: Chronic Code(s): Z86.79 - PERSONAL HISTORY OF OTHER DISEASES OF THE CIRCULATORY SYSTEM SNOMED Code(s): 067484567 Comment: continue amiodarone and lopressor (6) Hypertension Current Visit: No Status: Chronic Code(s): I10 - ESSENTIAL (PRIMARY) HYPERTENSION SNOMED Code(s): 08739825 Comment: stable continue lopressor (7) Type 2 diabetes mellitus Current Visit: No Status: Chronic Comment: finger sticks AC will hold SS for now as patient blood sugar is 148 (8) DVT prophylaxis Current Visit: No Status: Chronic Priority: Low Code(s): GBX8838 - SNOMED Code(s): 984261285 Comment: lovenox (9) Full code status Current Visit: Yes Status: Acute Code(s): Z78.9 - OTHER SPECIFIED HEALTH STATUS SNOMED Code(s): 788912310
[2019-05-17 21:29] LABS: Urine Appearance Cloudy; Urine Bilirubin Negative (Negative); Urine Blood Negative (Negative); Urine Color Yellow; Urine Glucose Negative (Negative); Urine Ketones Negative (Negative); Urine Nitrite Negative (Negative); Urine Protein Negative (Negative); Urine Specific Gravity 1.018 (1.010-1.030); Urine Urobilinogen Negative (Negative)
[2019-05-17] MEDS ORDERED: Vancomycin(*) 750 MG in NS 0.9% 250 ML* 250 ML IVPB SCH (22:00)
[2019-05-17] MEDS: NS 0.9% 1000 ML** 1,000 ML IV SCH (22:02)
[2019-05-18] MEDS: hydrALAZINE IV* 20 MG/ML VIAL IV SLOW PU PRN (00:14)
[2019-05-18] MEDS: Enoxaparin(*) 30 MG/0.3 ML SYR SUBCUT SCH (05:29)
[2019-05-18] MEDS: Levothyroxine TAB* 25 MCG TAB PO SCH (05:31)
[2019-05-18 06:21] LABS: ABS Basophils 0.1 10^3/ul (0-0.2); ABS Lymphocytes 1.6 10^3/ul (1.0-4.8); ABS Monocytes 1.3 10^3/ul (0-0.8); ABS Neutrophils 4.8 10^3/ul (1.5-7.7); Eosinophil % 0.5 %; Hematocrit 35 % (35-47); Hemoglobin 11.8 g/dL (12.0-16.0); Lymphocyte % 20.2 %; Mean Corpuscular HGB Conc 33 g/dL (31-36); Mean Corpuscular Hemoglobin 30 pg (27-31); Mean Corpuscular Volume 89 fL (80-97); Mean Platelet Volume 9.5 fL (7.4-10.4); Platelet Count 180 10^3/uL (150-450); Red Blood Count 3.98 10^6 /uL (3.70-4.87); Red Cell Distribution Width 14 % (10-15); White Blood Count 7.8 10^3/uL (3.5-10.8)
[2019-05-18 06:43] LABS: BUN/Creatinine Ratio 18.3 (8-20); Calcium 8.3 mg/dL (8.6-10.3); EGFR Non-African American 57.9 (>60); Potassium 3.9 mmol/L (3.5-5.0)
[2019-05-18] MEDS: Aspirin EC TAB* 81 MG TAB.EC PO SCH (08:25)
[2019-05-18] MEDS: Metoprolol Succinate XL TAB* 25 MG PO SCH (08:25)
[2019-05-18] MEDS: Amiodarone TAB* 200 MG PO SCH (08:25)
[2019-05-18] MEDS: ZOSYN 3.375 GM Q8H per EXTENDED INFUSION IVPB SCH ×2 (08:25)
[2019-05-18] MEDS ORDERED: Metoprolol Tartrate TAB* 25 MG PO SCH (09:00)
[2019-05-18] MEDS ORDERED: Albuterol/Ipratropium NEB.SOL* Albuterol 2.5 MG/Ipratropium 0.5 MG 3 ML INH SCH (14:00)
[2019-05-18] MEDS: cefTRIAXone(*) 1 GM in NS 0.9% 50 ML* 50 ML IVPB SCH (15:09)
--- NOTE | 2019-05-18 15:46 | PN ---
Subjective Date of Service: 05/18/19 Interval History: Patient seen and examined. Patient extremely confused, unable to obtain ROS 2/2 altered cognition. Does not appear to be in distress. Chart and nursing notes reviewed. No acute overnight events. Family History: Unchanged from Admission Social History: Unchanged from Admission Past Medical History: Unchanged from Admission Objective Active Medications: Albuterol/Ipratropium (Duoneb (Albuterol 2.5 Mg/Ipratropium 0.5 Mg)) 1 neb INH Q6H [facility] Amiodarone HCl (Cordarone Tab*) 200 mg PO DAILY [facility] Last Admin: 05/18/19 08:25 Dose: 200 mg Aspirin (Aspirin Ec Tab*) 81 mg PO DAILY [facility] Last Admin: 05/18/19 08:25 Dose: 81 mg Enoxaparin Sodium (Lovenox(*)) 30 mg SUBCUT Q24H [facility] Last Admin: 05/18/19 05:29 Dose: 30 mg Hydralazine HCl (Apresoline Iv*) 5 mg IV SLOW PU Q6H PRN PRN Reason: HTN Last Admin: 05/18/19 00:14 Dose: 5 mg Sodium Chloride (Ns 0.9% 1000 Ml) 1,000 mls @ 75 mls/hr IV PER RATE [facility] Last Admin: 05/17/19 22:02 Dose: 75 mls/hr Ceftriaxone Sodium 1 gm/ (Sodium Chloride) 50 mls @ 100 mls/hr IVPB Q24H [facility] Last Admin: 05/18/19 15:09 Dose: 100 mls/hr Levothyroxine Sodium (Synthroid Tab*) 25 mcg PO DAILY@0600 [facility] Last Admin: 05/18/19 05:31 Dose: Not Given Metoprolol Succinate (Toprol Xl Tab*) 25 mg PO DAILY [facility] Last Admin: 05/18/19 08:25 Dose: 25 mg Vital Signs - 8 hr 05/18/19 05/18/19 08:00 11:15 Temperature 98.4 F Pulse Rate 68 Respiratory 21 Rate Blood Pressure 130/60 (mmHg) O2 Sat by Pulse 95 97 Oximetry Oxygen Devices in Use Now: Nasal Cannula Appearance: Alert, confused, NAD Eyes: No Scleral Icterus, PERRLA Ears/Nose/Mouth/Throat: Mucous Membranes Moist Neck: NL Appearance and Movements; NL JVP, Trachea Midline Respiratory: - - course breath sounds bilaterally with expiratory wheeze Cardiovascular: NL Sounds; No Murmurs; No JVD, RRR, No Edema Abdominal: NL Sounds; No Tenderness; No Distention Extremities: No Edema, No Clubbing, Cyanosis Skin: No Rash or Ulcers Neurological: - - confused, does not follow commands Nutrition: Taking PO's Result Diagrams: 05/18/19 05:49 05/18/19 05:49 Microbiology and Other Data: Microbiology 05/17/19 09:20 Nasal Screen MRSA (PCR) - Final Nasal Mrsa Not Detected Diagnostic Imaging: Patient Name: MARCELA BENTLEY I Medical Record#: [id number] Ordering Physician: Yesy MEZA Acct.#: [id number] : 1940 Age: 79 Sex: F Location: [address] [place] [address] MEDICAL/TELEMETRY Exam Date: 05/17/19103 ADM Status: ADM IN Order Information: CHEST AP OR PORT Accession Number: [id number] CPT: 83438 INDICATION: Shortness of breath. COMPARISON: Comparison is made with a prior chest x-ray study from April 02, 2018. TECHNIQUE: A portable view of the chest was obtained. FINDINGS: The heart appears mildly enlarged and unchanged. There is a patchy infiltrate in the left perihilar region. No pleural effusion is seen. IMPRESSION: LEFT PERIHILAR INFILTRATE. *[facility]* [place] [address] Fax #: [phone] Transthoracic Echocardiogram Patient: Marcela Bentley I : 1940 Study Date: 05/17/2019 Age: 79 Gender: F HR: 70 bpm Height: 64 in /162.6 cm BSA: 1.68 m^2 Weight: 139.7 lb /63.5 kg BMI: 24 kg/m^2 *Primer Inspector: * Huyen Contreras [facility] *Referring Physician: * Garrick Wilkerson *Reading Physician: * Brady Orr MD Indications: Congestive Heart Failure. Elevated troponin level. History: Atrial fibrillation. Risk factors: Hypertension. Diabetes mellitus. Dementia. Conclusions Summary: - Left ventricle: Systolic function is normal. The estimated ejection fraction is 55-60%. Wall motion is normal; there are no regional wall motion abnormalities. - Right ventricle: Systolic function is normal. - Left atrium: The atrium is severely dilated. - Mitral valve: There is mild regurgitation. - Aortic valve: The valve is trileaflet. The leaflets are mildly thickened. The findings are consistent with moderate stenosis. The peak systolic velocity is 2.9 m/sec. The mean systolic gradient is 16.0 mm Hg. - Tricuspid valve: There is moderate regurgitation. - Pulmonary arteries: Systolic pressure is mildly to moderately increased. - Study data: No prior study is available for comparison. EKG Data: When compared to old EKG from month ago essentially unchanged. It is sinus with few atrial beats with a rate of 76bpm. Assess/Plan/Problems-Billing Assessment: 79yoF with DM, A. Fib not on AC, presented to ER with CAP, admitted for same. - Patient Problems (1) Pneumonia Code(s): J18.9 - PNEUMONIA, UNSPECIFIED ORGANISM SNOMED Code(s): 096984676 Comment: - Bilateral perihilar CAP - Received cefepime, vanco and zosyn, covering for institutionally acquired PNA , however, no fever, leukocytosis resolved, no tachycardia, no hypotension, blood cultures negative and LA = 1.1, sepsis ruled out - Will change to ceftriaxone today, 1gm daily - Change to duonebs Q6h scheduled as patient unable to communicate need for PRN - Add mucinex BID (2) ROMELIA (acute kidney injury) Code(s): N17.9 - ACUTE KIDNEY FAILURE, UNSPECIFIED SNOMED Code(s): 30176022 Comment: - Renal function back to baseline, continue to monitor labs (3) Elevated troponin Code(s): R74.8 - ABNORMAL LEVELS OF OTHER SERUM ENZYMES SNOMED Code(s): 634269776 Comment: - Demand in setting of PNA, no obvious anginal equivalents and no changes on EKG (4) Sepsis Current Visit: Yes Status: Acute Comment: - Patient had SIRS at admission, did not meet full criteria for sepsis, no organ dysfunction and no lactic acid elevation - Antibiotics adjusted, continue ceftriaxone (5) Dementia Code(s): F03.90 - UNSPECIFIED DEMENTIA WITHOUT BEHAVIORAL DISTURBANCE SNOMED Code(s): 45661758 Comment: - Continue supportive care (6) Paroxysmal a-fib Code(s): I48.0 - PAROXYSMAL ATRIAL FIBRILLATION SNOMED Code(s): 846756808 Comment: - Continue metoprolol and amiodarone (7) Full code status Code(s): Z78.9 - OTHER SPECIFIED HEALTH STATUS SNOMED Code(s): 314519961 Status and Disposition: inpatient
[2019-05-18] MEDS: Albuterol/Ipratropium NEB.SOL* Albuterol 2.5 MG/Ipratropium 0.5 MG 3 ML INH SCH (19:23)
[2019-05-19] MEDS: NS 0.9% 1000 ML** 1,000 ML IV SCH (00:10)
[2019-05-19] MEDS: Albuterol/Ipratropium NEB.SOL* Albuterol 2.5 MG/Ipratropium 0.5 MG 3 ML INH SCH ×4 (02:11→19:16)
[2019-05-19] MEDS: Levothyroxine TAB* 25 MCG TAB PO SCH (05:11)
[2019-05-19] MEDS: Enoxaparin(*) 30 MG/0.3 ML SYR SUBCUT SCH (05:11)
[2019-05-19 06:24] LABS: ABS Basophils 0.1 10^3/ul (0-0.2); ABS Eosinophils 0.1 10^3/ul (0-0.6); ABS Lymphocytes 1.6 10^3/ul (1.0-4.8); ABS Neutrophils 4.2 10^3/ul (1.5-7.7); Eosinophil % 2.1 %; Hematocrit 36 % (35-47); Hemoglobin 11.7 g/dL (12.0-16.0); Lymphocyte % 22.5 %; Mean Corpuscular HGB Conc 33 g/dL (31-36); Mean Corpuscular Hemoglobin 29 pg (27-31); Mean Corpuscular Volume 89 fL (80-97); Mean Platelet Volume 9.1 fL (7.4-10.4); Nucleated Red Blood Cells % 0.1; Platelet Count 185 10^3/uL (150-450); Red Cell Distribution Width 14 % (10-15)
[2019-05-19 06:41] LABS: BUN/Creatinine Ratio 18.9 (8-20); Calcium 8.2 mg/dL (8.6-10.3); EGFR African American 91.1 (>60); EGFR Non-African American 75.3 (>60); Potassium 3.9 mmol/L (3.5-5.0)
[2019-05-19] MEDS: Aspirin EC TAB* 81 MG TAB.EC PO SCH (08:50)
[2019-05-19] MEDS: Amiodarone TAB* 200 MG PO SCH (08:50)
[2019-05-19] MEDS: Metoprolol Succinate XL TAB* 25 MG PO SCH (08:50)
[2019-05-19] MEDS ORDERED: Vancomycin Trough Check NOTE FOLLOW UP ONE (09:30)
[2019-05-19] MEDS: cefTRIAXone(*) 1 GM in NS 0.9% 50 ML* 50 ML IVPB SCH (14:52)
[2019-05-19] MEDS: guaiFENesin ER TAB 600 MG PO SCH ×2 (15:37→20:47)
--- NOTE | 2019-05-19 18:37 | PN ---
Subjective Date of Service: 05/19/19 Interval History: Patient seen and examined. Remains confused, unable to obtain ROS. No acute overnight events. Per RN, no changes in status. Family History: Unchanged from Admission Social History: Unchanged from Admission Past Medical History: Unchanged from Admission Objective Active Medications: Albuterol/Ipratropium (Duoneb (Albuterol 2.5 Mg/Ipratropium 0.5 Mg)) 1 neb INH Q6H [facility] Last Admin: 05/19/19 11:54 Dose: 1 neb Amiodarone HCl (Cordarone Tab*) 200 mg PO DAILY [facility] Last Admin: 05/19/19 08:50 Dose: 200 mg Aspirin (Aspirin Ec Tab*) 81 mg PO DAILY [facility] Last Admin: 05/19/19 08:50 Dose: 81 mg Enoxaparin Sodium (Lovenox(*)) 30 mg SUBCUT Q24H [facility] Last Admin: 05/19/19 05:11 Dose: 30 mg Guaifenesin (Mucinex*) 600 mg PO BID [facility] Last Admin: 05/19/19 15:37 Dose: 600 mg Hydralazine HCl (Apresoline Iv*) 5 mg IV SLOW PU Q6H PRN PRN Reason: HTN Last Admin: 05/18/19 00:14 Dose: 5 mg Ceftriaxone Sodium 1 gm/ (Sodium Chloride) 50 mls @ 100 mls/hr IVPB Q24H [facility] Last Admin: 05/19/19 14:52 Dose: 100 mls/hr Levothyroxine Sodium (Synthroid Tab*) 25 mcg PO DAILY@0600 [facility] Last Admin: 05/19/19 05:11 Dose: 25 mcg Metoprolol Succinate (Toprol Xl Tab*) 25 mg PO DAILY [facility] Last Admin: 05/19/19 08:50 Dose: 25 mg Vital Signs - 8 hr 05/19/19 05/19/19 05/19/19 11:15 11:56 12:03 Temperature 97.0 F Pulse Rate 62 76 Respiratory 19 16 Rate Blood Pressure 136/63 (mmHg) O2 Sat by Pulse 97 98 Oximetry Oxygen Devices in Use Now: Nasal Cannula Appearance: alert, confused, NAD Eyes: No Scleral Icterus, PERRLA Ears/Nose/Mouth/Throat: NL Teeth, Lips, Gums, Mucous Membranes Moist Neck: NL Appearance and Movements; NL JVP, Trachea Midline Respiratory: Symmetrical Chest Expansion and Respiratory Effort, - - scattered rhonchi, course breath sounds, bilateral wheeze Cardiovascular: NL Sounds; No Murmurs; No JVD, RRR, No Edema Abdominal: NL Sounds; No Tenderness; No Distention Extremities: No Edema, No Clubbing, Cyanosis Skin: No Rash or Ulcers Neurological: - - confused, does not follow commands Nutrition: Taking PO's Result Diagrams: 05/19/19 06:05 05/19/19 06:05 Microbiology and Other Data: Microbiology 05/17/19 09:20 Nasal Screen MRSA (PCR) - Final Nasal Mrsa Not Detected Diagnostic Imaging: Patient Name: MARCELA BENTLEY I Medical Record#: [id number] Ordering Physician: Yesy MEZA Acct.#: [id number] : 1940 Age: 79 Sex: F Location: [address] [place] [address] MEDICAL/TELEMETRY Exam Date: 05/17/19103 ADM Status: ADM IN Order Information: CHEST AP OR PORT Accession Number: [id number] CPT: 56075 INDICATION: Shortness of breath. COMPARISON: Comparison is made with a prior chest x-ray study from April 02, 2018. TECHNIQUE: A portable view of the chest was obtained. FINDINGS: The heart appears mildly enlarged and unchanged. There is a patchy infiltrate in the left perihilar region. No pleural effusion is seen. IMPRESSION: LEFT PERIHILAR INFILTRATE. *[facility]* [place] [address] Fax #: [phone] Transthoracic Echocardiogram Patient: Marcela Bentley I : 1940 Study Date: 05/17/2019 Age: 79 Gender: F HR: 70 bpm Height: 64 in /162.6 cm BSA: 1.68 m^2 Weight: 139.7 lb /63.5 kg BMI: 24 kg/m^2 *Quality Control Systems Manager: * Huyen Contreras [facility] *Referring Physician: * Garrick Wilkerson *Reading Physician: * Brady Orr MD Indications: Congestive Heart Failure. Elevated troponin level. History: Atrial fibrillation. Risk factors: Hypertension. Diabetes mellitus. Dementia. Conclusions Summary: - Left ventricle: Systolic function is normal. The estimated ejection fraction is 55-60%. Wall motion is normal; there are no regional wall motion abnormalities. - Right ventricle: Systolic function is normal. - Left atrium: The atrium is severely dilated. - Mitral valve: There is mild regurgitation. - Aortic valve: The valve is trileaflet. The leaflets are mildly thickened. The findings are consistent with moderate stenosis. The peak systolic velocity is 2.9 m/sec. The mean systolic gradient is 16.0 mm Hg. - Tricuspid valve: There is moderate regurgitation. - Pulmonary arteries: Systolic pressure is mildly to moderately increased. - Study data: No prior study is available for comparison. EKG Data: When compared to old EKG from month ago essentially unchanged. It is sinus with few atrial beats with a rate of 76bpm. Assess/Plan/Problems-Billing Assessment: 79yoF with DM, A. Fib not on AC, presented to ER with CAP, admitted for same. - Patient Problems (1) Pneumonia Code(s): J18.9 - PNEUMONIA, UNSPECIFIED ORGANISM SNOMED Code(s): 261063511 Comment: - Bilateral perihilar CAP - Received cefepime, vanco and zosyn, covering for institutionally acquired PNA , however, no fever, leukocytosis resolved, no tachycardia, no hypotension, blood cultures negative and LA = 1.1, sepsis ruled out - Will change to ceftriaxone today, 1gm daily - Change to duonebs Q6h scheduled as patient unable to communicate need for PRN - Added mucinex BID - Discussed with respiratory, will do manual chest PT to assist with expectoration and mobilization of secretions, as patient is unable to follow commands (eg, cough and deep breath, use IS or flutter valve) (2) ROMELIA (acute kidney injury) Code(s): N17.9 - ACUTE KIDNEY FAILURE, UNSPECIFIED SNOMED Code(s): 26985617 Comment: - Renal function back to baseline, continue to monitor labs (3) Elevated troponin Code(s): R74.8 - ABNORMAL LEVELS OF OTHER SERUM ENZYMES SNOMED Code(s): 753115881 Comment: - Demand in setting of PNA, no obvious anginal equivalents and no changes on EKG (4) Sepsis Current Visit: Yes Status: Acute Comment: - Patient had SIRS at admission, did not meet full criteria for sepsis, no organ dysfunction and no lactic acid elevation - Antibiotics adjusted, continue ceftriaxone (5) Dementia Code(s): F03.90 - UNSPECIFIED DEMENTIA WITHOUT BEHAVIORAL DISTURBANCE SNOMED Code(s): 59781933 Comment: - Continue supportive care (6) Paroxysmal a-fib Code(s): I48.0 - PAROXYSMAL ATRIAL FIBRILLATION SNOMED Code(s): 788093399 Comment: - Continue metoprolol and amiodarone (7) Full code status Code(s): Z78.9 - OTHER SPECIFIED HEALTH STATUS SNOMED Code(s): 325102009 Status and Disposition: inpatient, dispo back to SNF when medically optimized
[2019-05-19] MEDS: hydrALAZINE IV* 20 MG/ML VIAL IV SLOW PU PRN (20:48)
[2019-05-20] MEDS: Albuterol/Ipratropium NEB.SOL* Albuterol 2.5 MG/Ipratropium 0.5 MG 3 ML INH SCH ×2 (01:30→09:11)
[2019-05-20] MEDS: Levothyroxine TAB* 25 MCG TAB PO SCH (05:34)
[2019-05-20] MEDS: Enoxaparin(*) 30 MG/0.3 ML SYR SUBCUT SCH (05:34)
[2019-05-20] MEDS: Amiodarone TAB* 200 MG PO SCH (08:01)
[2019-05-20] MEDS: Metoprolol Succinate XL TAB* 25 MG PO SCH (08:01)
[2019-05-20] MEDS: guaiFENesin ER TAB 600 MG PO SCH ×2 (08:01→21:23)
[2019-05-20] MEDS: Aspirin EC TAB* 81 MG TAB.EC PO SCH (08:01)
[2019-05-20] MEDS ORDERED: Albuterol/Ipratropium NEB.SOL* Albuterol 2.5 MG/Ipratropium 0.5 MG 3 ML INH PRN (12:20)
[2019-05-20] MEDS: cefTRIAXone(*) 1 GM in NS 0.9% 50 ML* 50 ML IVPB SCH (15:36)
--- NOTE | 2019-05-20 17:33 | PN ---
Subjective Date of Service: 05/20/19 Interval History: Patient seen and examined. OOB and ambulating with walker. Remains confused but appears more alert and engaged. Patient also appears to be coughing on her own with less effort or prompting. Per staff, patient remains difficult to manage and does not follow directions, but she is markedly improved. Family History: Unchanged from Admission Social History: Unchanged from Admission Past Medical History: Unchanged from Admission Objective Active Medications: Albuterol/Ipratropium (Duoneb (Albuterol 2.5 Mg/Ipratropium 0.5 Mg)) 1 neb INH Q4H PRN PRN Reason: SOB/WHEEZING Amiodarone HCl (Cordarone Tab*) 200 mg PO DAILY [facility] Last Admin: 05/20/19 08:01 Dose: 200 mg Aspirin (Aspirin Ec Tab*) 81 mg PO DAILY [facility] Last Admin: 05/20/19 08:01 Dose: 81 mg Enoxaparin Sodium (Lovenox(*)) 30 mg SUBCUT Q24H [facility] Last Admin: 05/20/19 05:34 Dose: 30 mg Guaifenesin (Mucinex*) 600 mg PO BID [facility] Last Admin: 05/20/19 08:01 Dose: 600 mg Hydralazine HCl (Apresoline Iv*) 5 mg IV SLOW PU Q6H PRN PRN Reason: HTN Last Admin: 05/19/19 20:48 Dose: 5 mg Ceftriaxone Sodium 1 gm/ (Sodium Chloride) 50 mls @ 100 mls/hr IVPB Q24H [facility] Last Admin: 05/20/19 15:36 Dose: 100 mls/hr Levothyroxine Sodium (Synthroid Tab*) 25 mcg PO DAILY@0600 [facility] Last Admin: 05/20/19 05:34 Dose: 25 mcg Metoprolol Succinate (Toprol Xl Tab*) 25 mg PO DAILY [facility] Last Admin: 05/20/19 08:01 Dose: 25 mg Vital Signs - 8 hr 05/20/19 05/20/19 05/20/19 10:03 11:33 15:15 Temperature 98.4 F 97.7 F 97.3 F Pulse Rate 60 58 58 Respiratory 20 20 16 Rate Blood Pressure 145/72 131/55 154/77 (mmHg) O2 Sat by Pulse 97 98 97 Oximetry Oxygen Devices in Use Now: Nasal Cannula Appearance: alert, NAD Eyes: No Scleral Icterus, PERRLA Ears/Nose/Mouth/Throat: Mucous Membranes Moist Neck: NL Appearance and Movements; NL JVP, Trachea Midline Respiratory: Symmetrical Chest Expansion and Respiratory Effort, - - good air entry, less wheeze, remains course at bases Cardiovascular: NL Sounds; No Murmurs; No JVD, RRR Abdominal: NL Sounds; No Tenderness; No Distention Extremities: No Edema, No Clubbing, Cyanosis Skin: No Rash or Ulcers Neurological: - Nutrition: Taking PO's Result Diagrams: 05/19/19 06:05 05/19/19 06:05 Microbiology and Other Data: Microbiology 05/17/19 09:20 Nasal Screen MRSA (PCR) - Final Nasal Mrsa Not Detected Diagnostic Imaging: Patient Name: MARCELA BENTLEY I Medical Record#: [id number] Ordering Physician: Yesy MEZA Acct.#: [id number] : 1940 Age: 79 Sex: F Location: [address] [place] [address] MEDICAL/TELEMETRY Exam Date: 05/17/19103 ADM Status: ADM IN Order Information: CHEST AP OR PORT Accession Number: [id number] CPT: 40161 INDICATION: Shortness of breath. COMPARISON: Comparison is made with a prior chest x-ray study from April 02, 2018. TECHNIQUE: A portable view of the chest was obtained. FINDINGS: The heart appears mildly enlarged and unchanged. There is a patchy infiltrate in the left perihilar region. No pleural effusion is seen. IMPRESSION: LEFT PERIHILAR INFILTRATE. *[facility]* [place] [address] Fax #: [phone] Transthoracic Echocardiogram Patient: Marcela Bentley I : 1940 Study Date: 05/17/2019 Age: 79 Gender: F HR: 70 bpm Height: 64 in /162.6 cm BSA: 1.68 m^2 Weight: 139.7 lb /63.5 kg BMI: 24 kg/m^2 *Hair Baler: * Huyen Contreras [facility] *Referring Physician: * Garrick Wilkerson *Reading Physician: * Brady Orr MD Indications: Congestive Heart Failure. Elevated troponin level. History: Atrial fibrillation. Risk factors: Hypertension. Diabetes mellitus. Dementia. Conclusions Summary: - Left ventricle: Systolic function is normal. The estimated ejection fraction is 55-60%. Wall motion is normal; there are no regional wall motion abnormalities. - Right ventricle: Systolic function is normal. - Left atrium: The atrium is severely dilated. - Mitral valve: There is mild regurgitation. - Aortic valve: The valve is trileaflet. The leaflets are mildly thickened. The findings are consistent with moderate stenosis. The peak systolic velocity is 2.9 m/sec. The mean systolic gradient is 16.0 mm Hg. - Tricuspid valve: There is moderate regurgitation. - Pulmonary arteries: Systolic pressure is mildly to moderately increased. - Study data: No prior study is available for comparison. EKG Data: When compared to old EKG from month ago essentially unchanged. It is sinus with few atrial beats with a rate of 76bpm. Assess/Plan/Problems-Billing Assessment: 79yoF with DM, A. Fib not on AC, presented to ER with CAP, admitted for same. - Patient Problems (1) Pneumonia Code(s): J18.9 - PNEUMONIA, UNSPECIFIED ORGANISM SNOMED Code(s): 857356988 Comment: - Bilateral perihilar CAP - Received cefepime, vanco and zosyn, covering for institutionally acquired PNA , however, no fever, leukocytosis resolved, no tachycardia, no hypotension, blood cultures negative and LA = 1.1, sepsis ruled out - Continue ceftriaxone 1gm daily - Change to duonebs Q6h scheduled as patient unable to communicate need for PRN - Added mucinex BID - Discussed with respiratory, will do manual chest PT to assist with expectoration and mobilization of secretions, as patient is unable to follow commands (eg, cough and deep breath, use IS or flutter valve) - Patient does appear to be much improved today (2) ROMELIA (acute kidney injury) Code(s): N17.9 - ACUTE KIDNEY FAILURE, UNSPECIFIED SNOMED Code(s): 25990704 Comment: - Renal function back to baseline, continue to monitor labs (3) Elevated troponin Code(s): R74.8 - ABNORMAL LEVELS OF OTHER SERUM ENZYMES SNOMED Code(s): 155669666 Comment: - Demand in setting of PNA, no obvious anginal equivalents and no changes on EKG (4) Sepsis Current Visit: Yes Status: Acute Comment: - Patient had SIRS at admission, did not meet full criteria for sepsis, no organ dysfunction and no lactic acid elevation - Antibiotics adjusted, continue ceftriaxone (5) Dementia Code(s): F03.90 - UNSPECIFIED DEMENTIA WITHOUT BEHAVIORAL DISTURBANCE SNOMED Code(s): 20473474 Comment: - Continue supportive care (6) Paroxysmal a-fib Code(s): I48.0 - PAROXYSMAL ATRIAL FIBRILLATION SNOMED Code(s): 477955678 Comment: - Continue metoprolol and amiodarone (7) Full code status Code(s): Z78.9 - OTHER SPECIFIED HEALTH STATUS SNOMED Code(s): 963245713 Status and Disposition: inpatient, dispo back to SNF when medically optimized, likely tomorrow.
[2019-05-21] MEDS: Levothyroxine TAB* 25 MCG TAB PO SCH (05:41)
[2019-05-21] MEDS: Enoxaparin(*) 30 MG/0.3 ML SYR SUBCUT SCH (05:42)
[2019-05-21] MEDS: Amiodarone TAB* 200 MG PO SCH (08:47)
[2019-05-21] MEDS: Metoprolol Succinate XL TAB* 25 MG PO SCH (08:47)
[2019-05-21] MEDS: guaiFENesin ER TAB 600 MG PO SCH (08:47)
[2019-05-21] MEDS: Aspirin EC TAB* 81 MG TAB.EC PO SCH (08:47)
[2019-05-21] MEDS ORDERED: Diphenoxylat/Atrop 2.5-0.025M* 1 TAB PO PRN (09:46)
[2019-05-21] MEDS ORDERED: Lactobacillus Acidophilus* 1 TAB PO SCH (10:00)
[2019-05-21 11:43] VITALS: BP 159/69
--- NOTE | 2019-05-21 14:06 | DS ---
CC: Dr. Dixie Doherty * DISCHARGE SUMMARY: DATE OF ADMISSION: 05/17/19 DATE OF DISCHARGE: 05/21/19 PRIMARY CARE PROVIDER: Dr. Dixie Doherty at [facility]. MY ATTENDING FOR TODAY: Dr. Keila Wilkerson.* (DICTATED BY CLUADY RICO NP) Please also let this discharge summary serve as the admitting H and P for return to [facility]. HOSPITAL COURSE: Please refer to the admitting H and P on 05/17/19, but in short, Ms. Bentley is a pleasantly confused 79-year-old female patient with a history of dementia, hypertension, diabetes and atrial fibrillation who sustained a fall some time ago in 2017. She is a permanent resident of [facility], so she is a poor historian. However, per the ER records, the patient was diagnosed with pneumonia at [facility]. Prior to her admission, she had a chest x-ray there and it was sent to the emergency department because she was starting to have some respiratory symptoms and some shortness of breath. Because the patient is demented at baseline, she is not able to describe her symptoms and it was difficult to obtain reliable review of symptoms. For these reasons, she was sent to the emergency department and admitted for treatment. Her hospital course did include chest x-ray and laboratory work. She was noted to have a leukocytosis with a white count of 13.3. Her chemistries were normal. Her electrolytes were within normal range. Her blood sugars were well controlled in the 124 to 179 range. Chest x-ray that was performed at admission on 05/17/19 did show that she had a left perihilar infiltrate. She did not have a pleural effusion. She does have a mildly enlarged heart, but there were no further acute changes. She did have very coarse breath sounds and some bilateral inspiratory, expiratory wheeze and did appear to be somewhat edematous and fluid overloaded. A transthoracic echocardiogram was also performed given this constellation of symptoms. Her echo showed normal systolic function with an ejection fraction of 55% to 60%. Right ventricle systolic function was normal. Left atrium with severe dilatation. Mitral valve with mild regurgitation. Aortic valve was trileaflet with some mild thickening. Findings were consistent with moderate stenosis. Peak systolic velocity is 2.9 milliseconds. Mean systolic gradient is 16.0 mmHg. Tricuspid valve showed moderate regurgitation. Pulmonary arteries with systolic pressure mildly-to- moderately increased. There is no prior study available for comparison. There was some concern at admission that the patient was meeting sepsis criteria. So initially, she was started on Zosyn and vancomycin; however, upon evaluating the patient's status, she did have some elevated white count, tachypnea and worsening pneumonia; however, she was actually meeting SIRS criteria and not sepsis. We adjusted her antibiotics and discontinued Zosyn and vancomycin and switched her slowly to ceftriaxone for community-acquired pneumonia. Because the patient is unable to follow directions very well, we could not give her pulmonary toilet in the form of incentive spirometry or flutter valve. She was placed on guaifenesin. I did have a conversation with Respiratory Therapy about doing physical chest percussion to help the patient expectorate and induce cough and some deep breathing. She did seem to respond very well to this. By 05/19/19 until , the patient became more alert and ambulatory. She was ambulating with a walker and with assistance from the nursing staff and did seem to have improvement in her breath sounds. The patient did have some mild diarrhea on 05/20/19; however, she had no increase in leukocytosis, no fevers, and no apparent abdominal pain. The patient was also placed on probiotic and p.r.n. Lomotil. On the day of discharge, 05/21/19, the patient is in no acute distress. Again review of systems is unreliable; however, she does appear to be resting comfortably. She is at her baseline. She has had no fevers for the last 72 hours. No alterations and no hemodynamics and she is ready for discharge. I did have a conversation with her son, Johnathan, who is aware that she will be discharged back to [facility] today. DISCHARGE DIAGNOSES: 1. Community-acquired left perihilar pneumonia. 2. Acute kidney injury secondary to dehydration, now resolved. 3. Elevated troponin secondary to demand ischemia. 4. Systemic inflammatory response syndrome, secondary to #1, now resolved. SECONDARY DIAGNOSES: 1. Hypertension. 2. Diabetes. 3. Dementia. 4. Atrial fibrillation. MEDICATIONS FOR DISCHARGE: Include: 1. Metoprolol succinate XL 25 mg p.o. daily. 2. Metformin 500 mg p.o. b.i.d. 3. Milk of magnesia 400 mg p.o. b.i.d. p.r.n. 4. Levothyroxine 25 mcg p.o. daily. 5. Atorvastatin 10 mg p.o. daily. 6. Aspirin 81 mg p.o. daily. 7. Amiodarone 200 mg p.o. daily. 8. Tylenol 650 mg p.o. q.4 hours as needed. 9. Irwin 5/325 mg 1 tablet q.6 hours as needed for pain. New medications: 1. Guaifenesin 600 mg p.o. b.i.d. 2. Lomotil 1 tab p.o. b.i.d. as needed for diarrhea. 3. Cefuroxime 500 mg 1 tab 2 times a day for 6 more days. PHYSICAL EXAMINATION: Physical exam today reveals a well-appearing older female in no acute distress. Vital signs are blood pressure 159/69, respiratory rate 20, O2 saturation 96% on 2 L nasal cannula, temperature is 98.3. HEENT: The patient is atraumatic, normocephalic. PERRLA. Nonicteric sclerae. Oral mucosa is moist. Tongue is midline. Neck is supple, nontender. No JVD noted. No thyromegaly and no carotid bruits auscultated. Cardiovascular : S1 and S2 are present. Rate and rhythm are regular. No murmurs, gallops, or rubs noted. Lungs are clear at the apices with good air entry. She has some coarse breath sounds at the bases. No wheezing noted. Some scattered rhonchi. is deferred. The patient is incontinent. Musculoskeletal: There is no clubbing and no cyanosis. She does have trace ankle edema with +2 distal pulses palpable. She has a steady gait with a walker. Gross motor is intact. Neurologic: She is confused at baseline, but otherwise no focal deficits noted. Psychiatric: She is unable to follow commands, but she has exhibited no agitation and is calm and otherwise cooperative. DIAGNOSTIC STUDIES/LAB DATA: WBC 7.0, RBCs 4.00, hemoglobin 11.7, hematocrit 36 , platelets 185. Sodium 140, potassium 3.9, chloride 109, CO2 24, BUN 14, creatinine 0.74, GFR is 75.3, glucose 115, calcium 8.2. INR is 0.99. Imaging: Chest x-ray and echocardiogram as noted in the body of the paragraph above. DISPOSITION: The patient will be discharged back to [facility] by ambulance transport today. She is in stable condition. DIET: The patient with heart healthy diet as tolerated. ACTIVITY: Progress activity as tolerated. TIME SPENT: 35 minutes on discharge planning. CLAUDY RICO NP [id number]/CPS #: [id number] LOLA
== END 2019-05-21 14:11 | DRG 194 ==
LOC: ED 00:28 → MEDTELE 04:13
PROVIDERS: ADMIT Internal Medicine; ATTEND Internal Medicine
DX: J18.9 Pneumonia, unspecified organism (principal); N17.9 Acute kidney failure, unspecified; I24.8 Other forms of acute ischemic heart disease; F03.90 Unspecified dementia, unspecified severity, without behavioral disturbance, psychotic disturbance, mood disturbance, and anxiety; I10 Essential (primary) hypertension; E11.9 Type 2 diabetes mellitus without complications; Z96.642 Presence of left artificial hip joint; I48.0 Paroxysmal atrial fibrillation; I08.3 Combined rheumatic disorders of mitral, aortic and tricuspid valves; R19.7 Diarrhea, unspecified; E86.0 Dehydration; Z79.84 Long term (current) use of oral hypoglycemic drugs; Z83.3 Family history of diabetes mellitus; Z79.82 Long term (current) use of aspirin
CPT/HCPCS: 36415; 71045; 80048; 80053; 80202; 81003; 83605; 83880; 84484; 85025; 85610; 85730; 86140; 87040; 87641; 87899; 93005; 93306; 94640; 94667; 94668; 99284; A9270-GY; J0360; J0692; J0696; J1650; J2543; J3370

== ENCOUNTER 2019-09-23 19:12 | Emergency (ER) | payer MEDICARE, MEDICAID ==
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
[2019-09-23 21:59] VITALS: BP 174/70
== END 2019-09-23 21:28 | disposition home or self-care (01) ==
LOC: ED 19:12
DX: S70.02XA Contusion of left hip, initial encounter (principal); W18.30XA Fall on same level, unspecified, initial encounter; Y92.122 Bedroom in nursing home as the place of occurrence of the external cause; E11.9 Type 2 diabetes mellitus without complications; I48.91 Unspecified atrial fibrillation; I10 Essential (primary) hypertension; Z96.642 Presence of left artificial hip joint
CPT/HCPCS: 99283

== ENCOUNTER 2022-07-03 08:33 | Inpatient (IN) ==
[2022-07-03] MEDS ORDERED: Lactated Ringers 1000 ml BAG 1,000 ML IV ONE ×2 (10:29→11:01)
[2022-07-03] MEDS ORDERED: Ondansetron 4 mg VIAL 2 MG/ML 2 ml VIAL IV ONE (10:29)
[2022-07-03] MEDS ORDERED: Morphine 4 MG/ML VIAL (1 ml) IV ONE (10:29)
[2022-07-03 10:34] LABS: ABS Lymphocytes 0.5 10^3/ul (1.0-4.8); ABS Monocytes 1.1 10^3/ul (0-0.8); ABS Neutrophils 11.8 10^3/ul (1.5-7.7); Hematocrit 48 % (35-47); Hemoglobin 15.5 g/dL (12.0-16.0); Lymphocyte % 3.9 %; Mean Corpuscular HGB Conc 33 g/dL (31-36); Mean Corpuscular Hemoglobin 30 pg (27-31); Mean Corpuscular Volume 91 fL (80-97); Mean Platelet Volume 9.7 fL (7.4-10.4); Platelet Count 276 10^3/uL (150-450); Red Blood Count 5.21 10^6 /uL (3.70-4.87); Red Cell Distribution Width 14 % (10-15); White Blood Count 13.4 10^3/uL (3.5-10.8)
[2022-07-03] MEDS ORDERED: fentaNYL 100 mcg/2 ml 50 MCG/ML VIAL IV SLOW PU ONE (11:14)
[2022-07-03 11:22] LABS: Albumin 4.6 g/dL (3.2-5.2); Albumin/Globulin Ratio 1.5 (1-3); Calcium 10.3 mg/dL (8.6-10.3); Globulin 3.1 g/dL (2-4); Potassium 3.8 mmol/L (3.5-5.0); Total Bilirubin 1.1 mg/dL (0.2-1.0); Total Protein 7.7 g/dL (6.4-8.9); eGFR CKD-EPI 37.4 (>60)
[2022-07-03] MEDS ORDERED: Iodixanol (CONTRAST) 320 MG/ML 100 ML SDV IV ONE (11:37)
[2022-07-03] MEDS ORDERED: Piperacillin/Tazobac ADVAN 3.375 GM in NS 0.9% 100 ml BAG 100 ML IV ONE (12:06)
[2022-07-03] MEDS ORDERED: Perflutren Lipid Microsphere 3 ML VIAL ONE (15:33)
[2022-07-03] MEDS ORDERED: Bupivacaine 0.25% SDV 30 ML ONE (16:10)
[2022-07-03] MEDS ORDERED: Norepinephrine IV 1 MG/ML 4 ML VIAL ONE (16:26)
[2022-07-03] MEDS ORDERED: Propofol 10 MG/ML 20 ML BTL ONE (16:33)
[2022-07-03] MEDS ORDERED: EPINEPHrine SYR 0.1MG/ML 10 ml SYRINGE ONE (16:34)
[2022-07-03] MEDS ORDERED: Lidocaine 2% PF 5 ML VIAL ONE (16:34)
[2022-07-03] MEDS ORDERED: fentaNYL 100 mcg/2 ml 50 MCG/ML VIAL ONE (16:35)
[2022-07-03] MEDS ORDERED: Rocuronium 50 mg VIAL 10 mg/ml 5 ml VIAL (50 mg) ONE (16:35)
[2022-07-03] MEDS ORDERED: Midazolam 2 mg/2 ml VIAL 1 mg/ml 2 ml VIAL (2 mg) ONE (16:35)
[2022-07-03] MEDS ORDERED: Dextrose 50% Syringe 50 ml 25 GM/50 ML SYRINGE IV PUSH PRN (17:44)
[2022-07-03] MEDS ORDERED: Lactated Ringers 1000 ml BAG 1,000 ML IV SCH (18:00)
[2022-07-03] MEDS ORDERED: Zosyn per Pharmacy NOTE FOLLOW UP SCH (18:00)
[2022-07-03 19:13] LABS: Magnesium 2.4 mg/dL (1.9-2.7)
[2022-07-03] MEDS: Heparin 5000 UNITS/ML 1 mL VIAL SUBCUT SCH (21:02)
[2022-07-03] MEDS: Piperacillin/Tazobac ADVAN 3.375 GM in NS 0.9% 100 ml BAG 100 ML IV SCH (22:08)
[2022-07-04] MEDS: Piperacillin/Tazobac ADVAN 3.375 GM in NS 0.9% 100 ml BAG 100 ML IV SCH ×2 (03:00→08:55)
[2022-07-04 04:22] LABS: ABS Lymphocytes 0.7 10^3/ul (1.0-4.8); ABS Monocytes 1.1 10^3/ul (0-0.8); ABS Neutrophils 7.2 10^3/ul (1.5-7.7); Hematocrit 38 % (35-47); Hemoglobin 12.5 g/dL (12.0-16.0); Lymphocyte % 7.6 %; Mean Corpuscular HGB Conc 33 g/dL (31-36); Mean Corpuscular Hemoglobin 29 pg (27-31); Mean Corpuscular Volume 90 fL (80-97); Mean Platelet Volume 9.8 fL (7.4-10.4); Platelet Count 209 10^3/uL (150-450); Red Blood Count 4.24 10^6 /uL (3.70-4.87); Red Cell Distribution Width 14 % (10-15)
[2022-07-04 04:44] LABS: Calcium 8.3 mg/dL (8.6-10.3); Magnesium 1.8 mg/dL (1.9-2.7); Potassium 4.6 mmol/L (3.5-5.0); eGFR CKD-EPI 27.3 (>60)
[2022-07-04] MEDS: Heparin 5000 UNITS/ML 1 mL VIAL SUBCUT SCH ×2 (06:02→12:37)
[2022-07-04] MEDS: Lactated Ringers 1000 ml BAG 1,000 ML IV SCH ×2 (06:56→07:21)
[2022-07-04] MEDS ORDERED: fentaNYL 100 mcg/2 ml 50 MCG/ML VIAL IV SLOW PU ONE (09:03)
[2022-07-04] MEDS: Metoprolol Tartrate 5 mg VIAL 5 ml VIAL (1 mg/ml) IV SCH ×2 (09:34→14:29)
[2022-07-04] MEDS ORDERED: Lactated Ringers 1000 ml BAG 1,000 ML IV SCH (12:11)
[2022-07-04] MEDS ORDERED: Ondansetron 4 mg VIAL 2 MG/ML 2 ml VIAL IV PRN (17:36)
[2022-07-04] MEDS ORDERED: Acetaminophen IV 1 GM/100ML 1,000 MG/100 ML BAG IV PRN (17:54)
[2022-07-04] MEDS ORDERED: Piperacillin/Tazobac ADVAN 3.375 GM in NS 0.9% 100 ml BAG 100 ML IV SCH (21:00)
[2022-07-05] MEDS: Morphine 2 MG/ML SYRINGE IV PRN ×6 (01:07→11:33)
[2022-07-05] MEDS ORDERED: Lorazepam PYXIS KEY ONE ×2 (09:29→13:11)
[2022-07-05] MEDS: LORazepam 2 mg VIAL 1 ml IV PUSH PRN ×2 (09:33→13:14)
[2022-07-05] MEDS: Metoprolol Tartrate 5 mg VIAL 5 ml VIAL (1 mg/ml) IV PRN ×2 (12:03→21:26)
[2022-07-05] MEDS ORDERED: Morphine 2 MG/ML SYRINGE IV PRN (12:37)
[2022-07-05] MEDS ORDERED: Morphine 2 MG/ML SYRINGE ONE (12:41)
[2022-07-05] MEDS: Atropine 1% (ORAL/SL) 15 ML BTL SL PRN (20:59)
[2022-07-06] MEDS: Atropine 1% (ORAL/SL) 15 ML BTL SL PRN (15:41)
[2022-07-06] MEDS: LORazepam 2 mg VIAL 1 ml IV PUSH PRN ×2 (15:41→19:57)
[2022-07-06] MEDS: Morphine ORAL CONCENTRATE 5 MG/0.25 ML ORAL.SYRIN SL PRN ×3 (15:41→20:37)
[2022-07-07] MEDS: Morphine ORAL CONCENTRATE 5 MG/0.25 ML ORAL.SYRIN SL PRN ×3 (00:35→06:56)
[2022-07-07] MEDS: LORazepam 2 mg VIAL 1 ml IV PUSH PRN ×6 (02:40→22:26)
[2022-07-07] MEDS ORDERED: Lorazepam PYXIS KEY ONE ×4 (06:50→18:18)
[2022-07-07 19:26] VITALS: BP 87/66
[2022-07-07] MEDS ORDERED: Lorazepam PYXIS KEY PRN (22:17)
[2022-07-08] MEDS: LORazepam 2 mg VIAL 1 ml IV PUSH PRN (02:34)
== END 2022-07-08 06:20 | disposition expired | DRG 394 ==
LOC: ED 08:33 → EDHOLD 13:47 → ICU 17:56 → SSU 07-05 13:50
PROVIDERS: ADMIT Surgery Surgical Critical Care; ATTEND Surgery Surgical Critical Care